=== PATIENT | male | born 1980 | race Caucasian/White ===

== ENCOUNTER 2022-01-05 21:35 | Inpatient (IN) | payer BC, OTHER ==
[2022-01-05] MEDS ORDERED: Sodium Chloride 0.9% 1000 ML 1,000 ML IV STA (21:42)
[2022-01-05] MEDS ORDERED: Sodium Chloride 0.9% 1000 ML 1,000 ML ONE (22:07)
[2022-01-05 22:13] LABS: Absolute Neutrophil Ct (ANC) 11.64 (1.4-6.9); Basophil (Absolute #) 0.02 (0-0.4); Eosinophil % 0.1 % (0.00-5.0); Eosinophil (Absolute #) 0.01 (0-0.5); Hematocrit 37.8 % (42-50); Hemoglobin 12.2 gm/dl (12.5-18.0); Lymphocytes % 22.4 % (24.0-44.0); Mean Corpuscular Hemoglobin 30.3 pg (26-32); Mean Corpuscular Hgb Concent. 32.3 g/dl (32-36); Mean Platelet Volume 10.1 fl (7.5-11.0); Monocyte (Absolute #) 1.16 (0.0-1.3); Neutrophil % 70.4 % (36.0-66.0); Platelet Count 223 K/mm3 (150-450); Red Blood Count 4.02 M/mm3 (4.1-5.6); Red Cell Distribution Width 14.5 % (11.5-14.0); White Blood Count 16.5 K/mm3 (4.0-10.5)
[2022-01-05 22:13] LABS: Appearance CLEAR (CLEAR); Bilirubin NEGATIVE (NEGATIVE); Dipstick done @ ? MAIN LAB; Glucose NEGATIVE (NEGATIVE); Ketones NEGATIVE (NEGATIVE); Nitrite NEGATIVE (NEGATIVE); Protein,Urine Dip NEGATIVE (Negative); RBC NEGATIVE Ery/ul (0-5); Specific Gravity 1.015 (1.005-1.025); Urobilinogen 1 mg/dL (0-1)
[2022-01-05 22:14] LABS: Bacteria NONE SEEN /HPF (NEGATIVE); Epithelial Cells RARE /HPF (FEW); Mucus SLIGHT /HPF (NEGATIVE); Urine Cultured Indicated? NO; WBC 0-2 /HPF (0-5)
[2022-01-05 22:17] LABS: ALBUMIN 4.5 g/dL (3.5-5.0); ALKALINE PHOSPHATASE 83 U/L (38-126); ANION GAP 13.4 MEQ/L (5-15); BLOOD UREA NITROGEN 14 mg/dL (9-20); CHLORIDE 97 mmol/L (98-107); Calcium 9.1 mg/dL (8.4-10.2); Carbon Dioxide 26 mmol/L (22-30); Creatinine 1 0.79 mg/dL (0.66-1.25); EST GLOMERULAR FILTRATION RATE > 60.0 ML/MIN; Glucose 117 mg/dL (74-106); LIPASE 104 U/L (23-300); Potassium 3.9 mmol/L (3.5-5.1); SGOT/AST 19 U/L (17-59); SGPT/ALT 16 U/L (0-50); SODIUM 133 mmol/L (137-145); Total Protein 8.1 g/dL (6.3-8.2)
--- NOTE | 2022-01-05 22:44 | ERPHSYRPT ---
- History of Present Illness Time Seen by Provider: 01/05/22 21:50 Historian: patient Exam Limitations: no limitations Patient Subjective Stated Complaint: lt sided lower abd pain Triage Nursing Assessment: pt c/o LLQ pain, non radiating. Pt has pain with palpation. Pt denies any nausea, vomiting or indigestion. Abd soft with active bsx4 quad, tender on palpation. Pt had 2 bowel movements today. Pt able to eat and drink with difficulty. Physician History: Patient is a 41-year-old male presents to our ED with complaints of left lower abdominal pain that started today. Pain described as an ache that is localized. No radiation. Pain worse with palpation. Pain improved with rest. No fever. No trauma. No nausea or vomiting. No diarrhea. No rash. Symptoms are moderate in intensity. Patient voices no other complaints concerns at this time. Timing/Duration: today Activities at Onset: none Quality: aching Abdominal Pain Onset Location: [facility] Pain Radiation: no radiation Severity of Pain-Max: moderate Severity of Pain-Current: mild Associated Symptoms: denies symptoms Previous symptoms: no prior history Allergies/Adverse Reactions: No Known Drug Allergies Allergy (Unverified 01/05/22 21:57) Home Medications: Benazepril HCl 10 mg [Lotensin 10 MG] 1 tab PO DAILY 01/05/22 [History] Folic Acid/Vit B Complex and C [Super B Complex Tablet] 1 tab PO DAILY 01/05/22 [History] Furosemide 40 mg PO DAILY 01/05/22 [History] Gabapentin 600 mg PO HS 01/05/22 [History] Hydrocodone/Acetaminophen [Hydrocodone-Acetamin 7.5-325] 1 tab PO DAILY 01/05/22 [History] Levocetirizine Dihydrochloride [Xyzal] 5 mg PO HS 01/05/22 [History] Metformin HCl 500 mg [Glucophage 500 MG] 500 mg PO DAILY 01/05/22 [History] PARoxetine HCl [Paxil] 1 tab PO HS 01/05/22 [History] Potassium Chloride 20 meq PO DAILY 01/05/22 [History] Zinc 1 tab PO DAILY 01/05/22 [History] Hx Tetanus, Diphtheria Vaccination/Date Given: Yes Hx Influenza Vaccination/Date Given: Yes Hx Pneumococcal Vaccination/Date Given: No Immunizations Up to Date: Yes Travel Risk - International Travel Have you traveled outside of the country in past 3 weeks: No - Coronavirus Screening Are you exhibiting any of the following symptoms?: No Close contact with a COVID-19 positive Pt in past 14-21 Days: No - Vaccine Status Have you recieved a Covid-19 vaccination: Yes [employer] In[employer]: Moderna - Vaccination Dates Date of 2cond Vaccination (if applicable): 10/28/20 - Review of Systems Constitutional: No Symptoms, No Fever, No Chills Eyes: No Symptoms Ears, Nose, & Throat: No Symptoms Respiratory: No Symptoms, No Cough, No Dyspnea Cardiac: No Symptoms, No Chest Pain, No Edema, No Syncope Abdominal/Gastrointestinal: No Symptoms, No Abdominal Pain, No Nausea, No V omiting, No Diarrhea Genitourinary Symptoms: No Symptoms, No Dysuria Musculoskeletal: No Symptoms, No Back Pain, No Neck Pain Skin: No Symptoms, No Rash Neurological: No Symptoms, No Dizziness, No Focal Weakness, No Sensory Changes Psychological: No Symptoms Endocrine: No Symptoms Hematologic/Lymphatic: No Symptoms Immunological/Allergic: No Symptoms All Other Systems: Reviewed and Negative - Past Medical History Pertinent Past Medical History: Yes Neurological History: No Pertinent History ENT History: No Pertinent History Cardiac History: No Pertinent History Respiratory History: No Pertinent History Endocrine Medical History: Diabetes Type II Musculoskeletal History: No Pertinent History GI Medical History: No Pertinent History History: No Pertinent History Psycho-Social History: Anxiety, Depression Male Reproductive Disorders: No Pertinent History Other Medical History: neuropathy. sciatica - Past Surgical History Past Surgical History: No - Social History Smoking Status: Former smoker Exposure to second hand smoke: No Drug Use: none Patient Lives Alone: No - Nursing Vital Signs Nursing Vital Signs: Initial Vital Signs Temperature 99.4 F 01/05/22 21:46 Pulse Rate 112 H 01/05/22 21:46 Respiratory Rate 18 01/05/22 21:46 Blood Pressure 136/92 01/05/22 21:46 O2 Sat by Pulse Oximetry 97 01/05/22 21:46 Pain Scale Pain Intensity 6 - Physical Exam General Appearance: no apparent distress, alert Eye Exam: PERRL/EOMI, eyes nml inspection Ears, Nose, Throat Exam: normal ENT inspection, pharynx normal, moist mucous membranes Neck Exam: normal inspection, non-tender, supple, full range of motion Respiratory Exam: normal breath sounds, lungs clear, No respiratory distress Cardiovascular Exam: regular rate/rhythm, normal heart sounds, normal peripheral pulses Gastrointestinal/Abdomen Exam: soft, No tenderness, No mass Back Exam: normal inspection, normal range of motion, No CVA tenderness, No vertebral tenderness Extremity Exam: normal inspection, normal range of motion, pelvis stable Neurologic Exam: alert, oriented x 3, cooperative, normal mood/affect, nml cerebellar function, sensation nml, No motor deficits Skin Exam: normal color, warm, dry Lymphatic Exam: No adenopathy SpO2 Interpretation: normal SpO2: 97 O2 Delivery: Room Air - Course Nursing assessment & vital signs reviewed: Yes - CT Exams Abdomen/Pelvis CT Interpretation: Tele-radiologist Report (1 cm subcapsular right hepatic cyst moderate wall thickening of the distal descending and proximal sigmoid colon extensive pericolonic inflammatory change. Probable focal area of subserosal or contained periserosal perforation without abscess.) Ordered Tests: Active Orders 24 hr Category Date Time Status IV Insertion STAT Care 01/05/22 21:42 Active ABDOMEN AND PELVIS W CONTRAST [CT] Stat Exams 01/05/22 21:43 Taken CBC W DIFF Stat Lab 01/05/22 22:00 Completed CMP Stat Lab 01/05/22 22:00 Completed LIPASE Stat Lab 01/05/22 22:00 Completed Transfer Order Routine Transfer 01/06/22 Ordered Medication Summary Discontinued Medications Generic Name Dose Route Start Last Admin Trade Name Freq PRN Reason Stop Dose Admin Sodium Chloride 1,000 mls @ 999 mls/hr 01/05/22 21:42 01/05/22 23:17 Sodium Chloride 0.9% 1000 Ml IV 01/05/22 22:42 Infused .Q1H1M STA Infusion Sodium Chloride Confirm 01/05/22 22:07 Sodium Chloride 0.9% 1000 Ml Administered 01/05/22 22:08 Dose 1,000 mls @ ud .ROUTE .STK-MED ONE Piperacillin Sod/Tazobactam 100 mls @ 200 mls/hr 01/05/22 23:14 01/05/22 23:20 Sod 3.375 gm/ Sodium Chloride IV 01/05/22 23:43 200 mls/hr STAT ONE Administration Sodium Chloride Confirm 01/05/22 23:19 Sodium Chloride 100ml Mini-Bag Plus Administered 01/05/22 23:20 Dose 100 mls @ ud IV .STK-MED ONE Piperacillin Sod/Tazobactam Sod Confirm 01/05/22 23:19 Piperacillin/Tazobactam Sodium 3.375 Gm Vial Administered 01/05/22 23:20 Dose 3.375 gm IV .STK-MED ONE Lab/Rad Data: Laboratory Result Diagrams 01/05/22 22:00 01/05/22 22:00 Laboratory Results 01/05/22 01/05/22 01/05/22 Range/Units 23:45 22:00 22:00 WBC 16.5 H (4.0-10.5) K/mm3 RBC 4.02 L (4.1-5.6) M/mm3 Hgb 12.2 L (12.5-18.0) gm/dl Hct 37.8 L (42-50) % MCV 94.0 (78-100) fl MCH 30.3 (26-32) pg MCHC 32.3 (32-36) g/dl RDW 14.5 H (11.5-14.0) % Plt Count 223 (150-450) K/mm3 MPV 10.1 (7.5-11.0) fl Gran % 70.4 H (36.0-66.0) % Eos # (Auto) 0.01 (0-0.5) Absolute Lymphs (auto) 3.70 (1.0-4.6) Absolute Monos (auto) 1.16 (0.0-1.3) Lymphocytes % 22.4 L (24.0-44.0) % Monocytes % 7.0 (0.0-12.0) % Eosinophils % 0.1 (0.00-5.0) % Basophils % 0.1 (0.0-0.4) % Absolute Granulocytes 11.64 H (1.4-6.9) Basophils # 0.02 (0-0.4) Sodium 133 L (137-145) mmol/L Potassium 3.9 (3.5-5.1) mmol/L Chloride 97 L (98-107) mmol/L Carbon Dioxide 26 (22-30) mmol/L Anion Gap 13.4 (5-15) MEQ/L BUN 14 (9-20) mg/dL Creatinine 0.79 (0.66-1.25) mg/dL Estimated GFR > 60.0 ML/MIN Glucose 117 H (74-106) mg/dL Calcium 9.1 (8.4-10.2) mg/dL Total Bilirubin 1.60 H (0.2-1.3) mg/dL AST 19 (17-59) U/L ALT 16 (0-50) U/L Alkaline Phosphatase 83 (38-126) U/L Serum Total Protein 8.1 (6.3-8.2) g/dL Albumin 4.5 (3.5-5.0) g/dL Lipase 104 (23-300) U/L Urinalys Dipstick Clnc Urine Color (YELLOW) Urine Appearance (CLEAR) Urine pH (5-6) Ur Specific [place] (1.005-1.025) POC Urine Protein Conf (Negative) Urine Ketones (NEGATIVE) Urine Nitrite (NEGATIVE) Urine Bilirubin (NEGATIVE) Urine Urobilinogen (0-1) mg/dL Urine Leukocytes (NEGATIVE) Urine WBC (Auto) (0-5) /HPF Urine RBC (Auto) (0-2) /HPF U Epithel Cells (Auto) (FEW) /HPF Urine Bacteria (Auto) (NEGATIVE) /HPF Urine RBC (0-5) Ross/ul Urine Mucus (Auto) (NEGATIVE) /HPF Ur Culture Indicated? Urine Glucose (NEGATIVE) mg/dL Influenza Type A Ag NEGATIVE (NEGATIVE) Influenza Type B Ag NEGATIVE (NEGATIVE) RSV (PCR) NEGATIVE (Negative) SARS-CoV-2 (PCR) NEGATIVE (NEGATIVE) 01/05/22 Range/Units 21:57 WBC (4.0-10.5) K/mm3 RBC (4.1-5.6) M/mm3 Hgb (12.5-18.0) gm/dl Hct (42-50) % MCV (78-100) fl MCH (26-32) pg MCHC (32-36) g/dl RDW (11.5-14.0) % Plt Count (150-450) K/mm3 MPV (7.5-11.0) fl Gran % (36.0-66.0) % Eos # (Auto) (0-0.5) Absolute Lymphs (auto) (1.0-4.6) Absolute Monos (auto) (0.0-1.3) Lymphocytes % (24.0-44.0) % Monocytes % (0.0-12.0) % Eosinophils % (0.00-5.0) % Basophils % (0.0-0.4) % Absolute Granulocytes (1.4-6.9) Basophils # (0-0.4) Sodium (137-145) mmol/L Potassium (3.5-5.1) mmol/L Chloride (98-107) mmol/L Carbon Dioxide (22-30) mmol/L Anion Gap (5-15) MEQ/L BUN (9-20) mg/dL Creatinine (0.66-1.25) mg/dL Estimated GFR ML/MIN Glucose (74-106) mg/dL Calcium (8.4-10.2) mg/dL Total Bilirubin (0.2-1.3) mg/dL AST (17-59) U/L ALT (0-50) U/L Alkaline Phosphatase (38-126) U/L Serum Total Protein (6.3-8.2) g/dL Albumin (3.5-5.0) g/dL Lipase (23-300) U/L Urinalys Dipstick Clnc MAIN LAB Urine Color YELLOW (YELLOW) Urine Appearance CLEAR (CLEAR) Urine pH 7.0 (5-6) Ur Specific [place] 1.015 (1.005-1.025) POC Urine Protein Conf NEGATIVE (Negative) Urine Ketones NEGATIVE (NEGATIVE) Urine Nitrite NEGATIVE (NEGATIVE) Urine Bilirubin NEGATIVE (NEGATIVE) Urine Urobilinogen 1 (0-1) mg/dL Urine Leukocytes NEGATIVE (NEGATIVE) Urine WBC (Auto) 0-2 (0-5) /HPF Urine RBC (Auto) NONE (0-2) /HPF U Epithel Cells (Auto) RARE (FEW) /HPF Urine Bacteria (Auto) NONE SEEN (NEGATIVE) /HPF Urine RBC NEGATIVE (0-5) Ross/ul Urine Mucus (Auto) SLIGHT (NEGATIVE) /HPF Ur Culture Indicated? NO Urine Glucose NEGATIVE (NEGATIVE) mg/dL Influenza Type A Ag (NEGATIVE) Influenza Type B Ag (NEGATIVE) RSV (PCR) (Negative) SARS-CoV-2 (PCR) (NEGATIVE) - Progress Progress: improved Progress Note: CT scan reveals severe proximal sigmoid colon diverticulitis with likely localized perforation without definitive evidence of pericolonic abscess. 01/05/22 23:[address] Eleazar Coronado who advises IV fluids n.p.o. and IV antibiotics. Patient received a dose of Zosyn. Case discussed with Dr. Quinones who accepts admission to observation. Covid test pending. Plan of care discussed with patient. He agrees to admission [facility] for further evaluation and treatment. 01/05/22 23:28 Covid test negative. Admit orders entered. Portions of this note were created with voice recognition technology. There may be grammatical, spelling, punctuation or sound alike errors 01/06/22 01:[address] Kyra Martinez Will see patient in: hospital (observation) Counseled pt/family regarding: lab results, diagnosis, rad results - Departure Departure Disposition: Observation Clinical Impression: Leukocytosis, Diverticulitis, Bowel perforation, Hyponatremia, Liver cyst Condition: Stable Critical Care Time: No Referrals: JORDAN MEADE [Primary Care Provider] - Follow up/PCP as directed
[2022-01-05] MEDS ORDERED: PIPERACILLIN/TAZOBACTAM 3.375 GM in Sodium Chloride 100ML MINI-BAG PLUS 100 ML IV ONE (23:14)
[2022-01-05] MEDS ORDERED: PIPERACILLIN/TAZOBACTAM IV ONE (23:19)
[2022-01-05] MEDS ORDERED: Sodium Chloride 100ML MINI-BAG PLUS 100 ML IV ONE (23:19)
[2022-01-06 00:29] LABS: INFLUENZA A NEGATIVE (NEGATIVE); INFLUENZA B NEGATIVE (NEGATIVE); RESPIRATORY SYNCTIAL VIRUS NEGATIVE (Negative); SARS-CoV-2 Xpert Express NEGATIVE (NEGATIVE)
[2022-01-06] MEDS ORDERED: Zofran 4 MG/2 ML VIAL IV PRN (01:17)
[2022-01-06] MEDS: MORPHINE SULFATE 4 MG INJ IV PRN ×4 (01:44→19:28)
[2022-01-06] MEDS: Sodium Chloride 0.9% 1000 ML 1,000 ML IV SCH ×3 (01:50→23:10)
[2022-01-06 05:05] LABS: Basophil (Absolute #) 0.02 (0-0.4); Eosinophil % 0.1 % (0.00-5.0); Eosinophil (Absolute #) 0.01 (0-0.5); Hematocrit 33.2 % (42-50); Hemoglobin 10.7 gm/dl (12.5-18.0); Lymphocyte (Absolute #) 3.73 (1.0-4.6); Lymphocytes % 23.7 % (24.0-44.0); Mean Cell Volume 95.4 fl (78-100); Mean Corpuscular Hemoglobin 30.7 pg (26-32); Mean Corpuscular Hgb Concent. 32.2 g/dl (32-36); Monocyte (Absolute #) 1.41 (0.0-1.3); Monocytes % 8.9 % (0.0-12.0); Neutrophil % 67.2 % (36.0-66.0); Platelet Count 188 K/mm3 (150-450); Red Blood Count 3.48 M/mm3 (4.1-5.6); Red Cell Distribution Width 14.8 % (11.5-14.0); White Blood Count 15.8 K/mm3 (4.0-10.5)
[2022-01-06 05:30] LABS: ALBUMIN 3.9 g/dL (3.5-5.0); ALKALINE PHOSPHATASE 65 U/L (38-126); ANION GAP 13.6 MEQ/L (5-15); BLOOD UREA NITROGEN 12 mg/dL (9-20); CHLORIDE 98 mmol/L (98-107); Calcium 8.3 mg/dL (8.4-10.2); Carbon Dioxide 25 mmol/L (22-30); Creatinine 1 0.77 mg/dL (0.66-1.25); EST GLOMERULAR FILTRATION RATE > 60.0 ML/MIN; Glucose 118 mg/dL (74-106); Potassium 3.8 mmol/L (3.5-5.1); SGOT/AST 18 U/L (17-59); SGPT/ALT 13 U/L (0-50); SODIUM 133 mmol/L (137-145); Total Protein 7.3 g/dL (6.3-8.2)
[2022-01-06] MEDS ORDERED: PIPERACILLIN/TAZOBACTAM IV ONE (06:15)
[2022-01-06] MEDS ORDERED: Sodium Chloride 100ML MINI-BAG PLUS 100 ML IV ONE (06:16)
[2022-01-06] MEDS: PIPERACILLIN/TAZOBACTAM 3.375 GM in Sodium Chloride 100ML MINI-BAG PLUS 100 ML IV SCH ×4 (06:32→23:10)
[2022-01-06] MEDS ORDERED: HOLD METFORMIN PRODUCTS FOR 48 HOURS MC SCH (07:30)
[2022-01-06] MEDS ORDERED: HUMALOG SQ PRN (07:59)
--- NOTE | 2022-01-06 07:59 | PCM.HP ---
History of Present Illness - Chief Complaint Chief Complaint: bowel perforation History of Present Illness: is a 41 year old male who is normally cared for by Dr Vee, he has had left lower abdomen pain for the last 3 months but it had improved, saw his physician and was told he didn't have a hernia and no testing was performed. Yesterday his pain became severe in the left lower abdomen, he was nauseated, no known fever and pain progressively worsened over 2-3 days so he came to the ER. Currently on the floor, his pain is well controlled and he has received morphine. - Review of Systems Constitutional: No Fever, No Chills Abdominal/Gastrointestinal: Abdominal Pain, Nausea, No Diarrhea, No Constipation Genitourinary Symptoms: No Dysuria Skin: No Rash Neurological: No Dizziness, No Focal Weakness, No Sensory Changes Medications & Allergies Home Medications: Home Medication List Benazepril HCl 10 mg [Lotensin 10 MG] 1 tab PO DAILY 01/05/22 [History Confirmed 01/05/22] Folic Acid/Vit B Complex and C [Super B Complex Tablet] 1 tab PO DAILY 01/05/22 [History Confirmed 01/05/22] Furosemide 40 mg PO DAILY 01/05/22 [History Confirmed 01/05/22] Gabapentin 600 mg PO HS 01/05/22 [History Confirmed 01/05/22] Hydrocodone/Acetaminophen [Hydrocodone-Acetamin 7.5-325] 1 tab PO DAILY 01/05/22 [History Confirmed 01/05/22] Levocetirizine Dihydrochloride [Xyzal] 5 mg PO HS 01/05/22 [History Confirmed 01/05/22] Metformin HCl 500 mg [Glucophage 500 MG] 500 mg PO DAILY 01/05/22 [History Confirmed 01/05/22] PARoxetine HCl [Paxil] 1 tab PO HS 01/05/22 [History Confirmed 01/05/22] Potassium Chloride 20 meq PO DAILY 01/05/22 [History Confirmed 01/05/22] Zinc 1 tab PO DAILY 01/05/22 [History Confirmed 01/05/22] Allergies/Adverse Reactions: Allergies Allergy/AdvReac Type Severity Reaction Status Date / Time No Known Drug Allergies Allergy Unverified 01/05/22 21:57 - Past Medical History Past Medical History: Yes Neurological History: No Pertinent History ENT History: No Pertinent History Cardiac History: No Pertinent History Respiratory History: No Pertinent History Endocrine Medical History: Diabetes Type II Musculoskelatal History: No Pertinent History GI Medical History: No Pertinent History History: No Pertinent History Pyscho-Social History: Anxiety, Depression Male Reproductive Disorders: No Pertinent History Comment: neuropathy. sciatica - Past Surgical History Past Surgical History: No - Social History Smoking Status: Former smoker Exposure to second hand smoke: No Alcohol: None Drug Use: none - Physical Exam Vital Signs: Vital Signs - 24 hr Temp Pulse Resp BP Pulse Ox 01/06/22 07:07 98.4 F 81 16 117/57 96 01/06/22 06:50 96 01/06/22 04:00 99.8 F 87 14 106/61 92 L 01/06/22 03:43 94 L 01/06/22 03:40 88 L 01/06/22 03:35 89 L 01/06/22 02:07 94 L 01/06/22 01:56 98.7 F 94 H 18 125/70 96 01/06/22 01:17 94 L 01/06/22 01:07 97 01/06/22 01:00 87 20 112/60 95 01/06/22 00:00 89 20 126/71 95 01/05/22 23:00 84 20 126/71 97 01/05/22 22:36 92 H 20 130/78 97 01/05/22 21:46 99.4 F 112 H 18 136/92 97 General Appearance: no apparent distress, obese Neurologic Exam: alert, oriented x 3 Respiratory Exam: normal breath sounds, lungs clear, No respiratory distress Cardiovascular Exam: regular rate/rhythm, normal heart sounds, normal peripheral pulses Gastrointestinal/Abdomen Exam: normal bowel sounds, tenderness (LLQ), No rebound Extremity Exam: normal inspection, normal range of motion, pelvis stable Skin Exam: normal color, warm, dry, No rash Results - Labs Lab/Micro Results: Lab Results-Last 24 Hours 01/05/22 01/05/22 01/05/22 Range/Units 21:57 22:00 22:00 WBC 16.5 H (4.0-10.5) K/mm3 RBC 4.02 L (4.1-5.6) M/mm3 Hgb 12.2 L (12.5-18.0) gm/dl Hct 37.8 L (42-50) % MCV 94.0 (78-100) fl MCH 30.3 (26-32) pg MCHC 32.3 (32-36) g/dl RDW 14.5 H (11.5-14.0) % Plt Count 223 (150-450) K/mm3 MPV 10.1 (7.5-11.0) fl Gran % 70.4 H (36.0-66.0) % Eos # (Auto) 0.01 (0-0.5) Absolute Lymphs (auto) 3.70 (1.0-4.6) Absolute Monos (auto) 1.16 (0.0-1.3) Lymphocytes % 22.4 L (24.0-44.0) % Monocytes % 7.0 (0.0-12.0) % Eosinophils % 0.1 (0.00-5.0) % Basophils % 0.1 (0.0-0.4) % Absolute Granulocytes 11.64 H (1.4-6.9) Basophils # 0.02 (0-0.4) Sodium 133 L (137-145) mmol/L Potassium 3.9 (3.5-5.1) mmol/L Chloride 97 L (98-107) mmol/L Carbon Dioxide 26 (22-30) mmol/L Anion Gap 13.4 (5-15) MEQ/L BUN 14 (9-20) mg/dL Creatinine 0.79 (0.66-1.25) mg/dL Estimated GFR > 60.0 ML/MIN Glucose 117 H (74-106) mg/dL Calcium 9.1 (8.4-10.2) mg/dL Total Bilirubin 1.60 H (0.2-1.3) mg/dL AST 19 (17-59) U/L ALT 16 (0-50) U/L Alkaline Phosphatase 83 (38-126) U/L Serum Total Protein 8.1 (6.3-8.2) g/dL Albumin 4.5 (3.5-5.0) g/dL Lipase 104 (23-300) U/L Urinalys Dipstick Clnc MAIN LAB Urine Color YELLOW (YELLOW) Urine Appearance CLEAR (CLEAR) Urine pH 7.0 (5-6) Ur Specific Whitt 1.015 (1.005-1.025) POC Urine Protein Conf NEGATIVE (Negative) Urine Ketones NEGATIVE (NEGATIVE) Urine Nitrite NEGATIVE (NEGATIVE) Urine Bilirubin NEGATIVE (NEGATIVE) Urine Urobilinogen 1 (0-1) mg/dL Urine Leukocytes NEGATIVE (NEGATIVE) Urine WBC (Auto) 0-2 (0-5) /HPF Urine RBC (Auto) NONE (0-2) /HPF U Epithel Cells (Auto) RARE (FEW) /HPF Urine Bacteria (Auto) NONE SEEN (NEGATIVE) /HPF Urine RBC NEGATIVE (0-5) Ross/ul Urine Mucus (Auto) SLIGHT (NEGATIVE) /HPF Ur Culture Indicated? NO Urine Glucose NEGATIVE (NEGATIVE) mg/dL Influenza Type A Ag (NEGATIVE) Influenza Type B Ag (NEGATIVE) RSV (PCR) (Negative) SARS-CoV-2 (PCR) (NEGATIVE) 01/05/22 01/06/22 01/06/22 Range/Units 23:45 04:30 04:30 WBC 15.8 H (4.0-10.5) K/mm3 RBC 3.48 L (4.1-5.6) M/mm3 Hgb 10.7 L (12.5-18.0) gm/dl Hct 33.2 L (42-50) % MCV 95.4 (78-100) fl MCH 30.7 (26-32) pg MCHC 32.2 (32-36) g/dl RDW 14.8 H (11.5-14.0) % Plt Count 188 (150-450) K/mm3 MPV 10.0 (7.5-11.0) fl Gran % 67.2 H (36.0-66.0) % Eos # (Auto) 0.01 (0-0.5) Absolute Lymphs (auto) 3.73 (1.0-4.6) Absolute Monos (auto) 1.41 H (0.0-1.3) Lymphocytes % 23.7 L (24.0-44.0) % Monocytes % 8.9 (0.0-12.0) % Eosinophils % 0.1 (0.00-5.0) % Basophils % 0.1 (0.0-0.4) % Absolute Granulocytes 10.60 H (1.4-6.9) Basophils # 0.02 (0-0.4) Sodium 133 L (137-145) mmol/L Potassium 3.8 (3.5-5.1) mmol/L Chloride 98 (98-107) mmol/L Carbon Dioxide 25 (22-30) mmol/L Anion Gap 13.6 (5-15) MEQ/L BUN 12 (9-20) mg/dL Creatinine 0.77 (0.66-1.25) mg/dL Estimated GFR > 60.0 ML/MIN Glucose 118 H (74-106) mg/dL Calcium 8.3 L (8.4-10.2) mg/dL Total Bilirubin 1.80 H (0.2-1.3) mg/dL AST 18 (17-59) U/L ALT 13 (0-50) U/L Alkaline Phosphatase 65 (38-126) U/L Serum Total Protein 7.3 (6.3-8.2) g/dL Albumin 3.9 (3.5-5.0) g/dL Lipase (23-300) U/L Urinalys Dipstick Clnc Urine Color (YELLOW) Urine Appearance (CLEAR) Urine pH (5-6) Ur Specific [place] (1.005-1.025) POC Urine Protein Conf (Negative) Urine Ketones (NEGATIVE) Urine Nitrite (NEGATIVE) Urine Bilirubin (NEGATIVE) Urine Urobilinogen (0-1) mg/dL Urine Leukocytes (NEGATIVE) Urine WBC (Auto) (0-5) /HPF Urine RBC (Auto) (0-2) /HPF U Epithel Cells (Auto) (FEW) /HPF Urine Bacteria (Auto) (NEGATIVE) /HPF Urine RBC (0-5) Ross/ul Urine Mucus (Auto) (NEGATIVE) /HPF Ur Culture Indicated? Urine Glucose (NEGATIVE) mg/dL Influenza Type A Ag NEGATIVE (NEGATIVE) Influenza Type B Ag NEGATIVE (NEGATIVE) RSV (PCR) NEGATIVE (Negative) SARS-CoV-2 (PCR) NEGATIVE (NEGATIVE) - Radiology Impressions Radiology Exams & Impressions: Radiology Procedures Category Date Time Status ABDOMEN AND PELVIS W CONTRAST [CT] Stat Exams 01/05/22 21:43 Taken - Other Procedures and Tests Respiratory Therapy 01/06/22 03:51 Oxygen Nasal Cannula 2 lpm 01/06/22 06:58 Incentive Spirometry UD Assessment/Plan (1) Diverticulitis of colon with perforation Current Visit: Yes Status: Acute Assessment & Plan: currently NPO, on zosyn. has microperf with no abscess on ct and exam is fairly benign. awaiting surgical consult. Code(s): K57.20 - DVTRCLI OF LG INT W PERFORATION AND ABSCESS W/O BLEEDING (2) Diabetes mellitus Current Visit: Yes Status: Acute Assessment & Plan: will cover with sliding scale insulin as needed Code(s): E11.9 - TYPE 2 DIABETES MELLITUS WITHOUT COMPLICATIONS (3) Hypertension Current Visit: Yes Status: Acute Assessment & Plan: continue home meds Code(s): I10 - ESSENTIAL (PRIMARY) HYPERTENSION
--- NOTE | 2022-01-06 09:17 | XRAY ---
Indication: Left abdomen/pelvic pain. Elevated WBC. Hernia. Multiple contiguous axial images obtained through the abdomen and pelvis using 80 cc Isovue 370 contrast. Comparison: None Lung bases demonstrates mild dependent atelectasis. Heart not enlarged. Noncontrasted stomach and bowel loops appear nonobstructed with normal air-filled appendix. Distal descending and mid to proximal sigmoid colon demonstrates moderate circumferential wall thickening and stranding favoring inflammatory process such as colitis. Tiny free fluid along the left colic gutter but no walled off fluid collection. There is intraluminal narrowing concerning for underlying mass. Junction of descending and sigmoid colon demonstrates a few diverticuli and a 1.5 cm focus of air bubbles concerning for perforation. Fatty hepatomegaly measuring 26.2 cm with incidental 1 cm inferior right lobe cyst. Splenomegaly measuring 15.5 cm. Neck of gallbladder demonstrates punctate stone. Remaining liver, gallbladder, pancreas, spleen, adrenal glands, kidneys, ureters, bladder, and aorta are unremarkable. No pathologic retroperitoneal lymphadenopathy. Osseous structures intact with mild/moderate degenerative changes throughout the thoracolumbar spine. Impression: 1. Abnormal bowel wall thickening/stranding distal descending/proximal sigmoid colon suggesting underlying inflammatory process such as colitis. Underlying mass not completely excluded. Tiny free fluid but no walled off fluid collection/abscess. Small free air at junction of descending and sigmoid colon concerning for perforation. 2. Incidental fatty hepatomegaly, splenomegaly, small hepatic cyst, and tiny gallstone. Comment: Preliminary interpretation made by [facility] who does not report free air or possibility for underlying colonic mass. Incidental findings including fatty hepatomegaly, splenomegaly, and gallstone also not reported. Telephone report given to Dr. Griffith at 0910 hrs. on January 06, 2022.
[2022-01-06] MEDS: Lotensin 10 MG PO SCH (09:23)
[2022-01-07] MEDS: MORPHINE SULFATE 4 MG INJ IV PRN ×2 (02:05→07:48)
[2022-01-07 04:39] LABS: Absolute Neutrophil Ct (ANC) 11.63 (1.4-6.9); Basophil (Absolute #) 0.02 (0-0.4); Eosinophil % 0.1 % (0.00-5.0); Eosinophil (Absolute #) 0.01 (0-0.5); Hematocrit 33.4 % (42-50); Hemoglobin 10.5 gm/dl (12.5-18.0); Lymphocyte (Absolute #) 2.64 (1.0-4.6); Lymphocytes % 17.1 % (24.0-44.0); Mean Cell Volume 96.8 fl (78-100); Mean Corpuscular Hemoglobin 30.4 pg (26-32); Mean Corpuscular Hgb Concent. 31.4 g/dl (32-36); Mean Platelet Volume 9.9 fl (7.5-11.0); Monocyte (Absolute #) 1.16 (0.0-1.3); Monocytes % 7.5 % (0.0-12.0); Neutrophil % 75.2 % (36.0-66.0); Platelet Count 184 K/mm3 (150-450); Red Blood Count 3.45 M/mm3 (4.1-5.6); Red Cell Distribution Width 14.9 % (11.5-14.0); White Blood Count 15.5 K/mm3 (4.0-10.5)
[2022-01-07 05:19] LABS: ALBUMIN 3.8 g/dL (3.5-5.0); ALKALINE PHOSPHATASE 61 U/L (38-126); ANION GAP 11.3 MEQ/L (5-15); BLOOD UREA NITROGEN 11 mg/dL (9-20); CHLORIDE 102 mmol/L (98-107); Calcium 8.3 mg/dL (8.4-10.2); Carbon Dioxide 25 mmol/L (22-30); Creatinine 1 0.71 mg/dL (0.66-1.25); EST GLOMERULAR FILTRATION RATE > 60.0 ML/MIN; Glucose 106 mg/dL (74-106); MAGNESIUM 2.1 mg/dL (1.6-2.3); SGOT/AST 15 U/L (17-59); SGPT/ALT 12 U/L (0-50); SODIUM 134 mmol/L (137-145); Total Protein 7.2 g/dL (6.3-8.2)
[2022-01-07] MEDS: PIPERACILLIN/TAZOBACTAM 3.375 GM in Sodium Chloride 100ML MINI-BAG PLUS 100 ML IV SCH ×4 (05:43→23:23)
--- NOTE | 2022-01-07 08:13 | PCM.NOTE ---
Date and Time: 01/07/22810 Subjective Assessment: pain is well controlled but still has some significant LLQ abd pain, no new complaints other than he is not urinating much which is usual for him if he doesn't have his lasix Objective Exam General Appearance: no apparent distress, obese Respiratory Exam: normal breath sounds, lungs clear, No respiratory distress Cardiovascular Exam: regular rate/rhythm, normal heart sounds Gastrointestinal/Abdomen Exam: tenderness (LLQ), No guarding, No rebound Extremity Exam: normal inspection, normal range of motion Back Exam: normal inspection, normal range of motion, No CVA tenderness, No vertebral tenderness OBJECTIVE DATA Vital Signs: Vital Signs - 24 hr Temp Pulse Resp BP Pulse Ox 01/07/22 08:00 97.8 F 99 H 18 119/61 96 01/07/22 07:51 18 01/07/22 04:00 99.1 F 91 H 18 118/61 98 01/07/22 00:00 98.8 F 79 16 117/56 97 01/06/22 20:00 98.7 F 101 H 18 103/56 95 01/06/22 18:34 96 01/06/22 16:00 16 01/06/22 15:38 97.7 F 77 16 98/56 01/06/22 12:00 16 01/06/22 11:40 97.7 F 77 16 108/55 92 L Pain Assessment - Last Documented Pain Intensity 7 Pain Scale Used 0-10 Pain Scale Intake and Output: Intake & Output 01/04/22 01/05/22 01/06/22 01/07/22 11:59 11:59 11:59 11:59 Intake Total 0 3684 Output Total 200 400 Balance -200 3284 Weight 119.9 kg Lab Results: Lab Results-Last 24 Hours 01/06/22 01/06/22 01/06/22 Range/Units 05:00 11:36 17:30 WBC (4.0-10.5) K/mm3 RBC (4.1-5.6) M/mm3 Hgb (12.5-18.0) gm/dl Hct (42-50) % MCV (78-100) fl MCH (26-32) pg MCHC (32-36) g/dl RDW (11.5-14.0) % Plt Count (150-450) K/mm3 MPV (7.5-11.0) fl Gran % (36.0-66.0) % Eos # (Auto) (0-0.5) Absolute Lymphs (auto) (1.0-4.6) Absolute Monos (auto) (0.0-1.3) Lymphocytes % (24.0-44.0) % Monocytes % (0.0-12.0) % Eosinophils % (0.00-5.0) % Basophils % (0.0-0.4) % Absolute Granulocytes (1.4-6.9) Basophils # (0-0.4) Sodium (137-145) mmol/L Potassium (3.5-5.1) mmol/L Chloride (98-107) mmol/L Carbon Dioxide (22-30) mmol/L Anion Gap (5-15) MEQ/L BUN (9-20) mg/dL Creatinine (0.66-1.25) mg/dL Estimated GFR ML/MIN Glucose (74-106) mg/dL POC Glucometer 123 H 101 (74 to 106) mg/dL Hemoglobin A1c 5.53 (4.5-6.0) % Calcium (8.4-10.2) mg/dL Magnesium (1.6-2.3) mg/dL Total Bilirubin (0.2-1.3) mg/dL AST (17-59) U/L ALT (0-50) U/L Alkaline Phosphatase (38-126) U/L Serum Total Protein (6.3-8.2) g/dL Albumin (3.5-5.0) g/dL 01/06/22 01/07/22 01/07/22 Range/Units 23:46 04:35 04:35 WBC 15.5 H (4.0-10.5) K/mm3 RBC 3.45 L (4.1-5.6) M/mm3 Hgb 10.5 L (12.5-18.0) gm/dl Hct 33.4 L (42-50) % MCV 96.8 (78-100) fl MCH 30.4 (26-32) pg MCHC 31.4 L (32-36) g/dl RDW 14.9 H (11.5-14.0) % Plt Count 184 (150-450) K/mm3 MPV 9.9 (7.5-11.0) fl Gran % 75.2 H (36.0-66.0) % Eos # (Auto) 0.01 (0-0.5) Absolute Lymphs (auto) 2.64 (1.0-4.6) Absolute Monos (auto) 1.16 (0.0-1.3) Lymphocytes % 17.1 L (24.0-44.0) % Monocytes % 7.5 (0.0-12.0) % Eosinophils % 0.1 (0.00-5.0) % Basophils % 0.1 (0.0-0.4) % Absolute Granulocytes 11.63 H (1.4-6.9) Basophils # 0.02 (0-0.4) Sodium 134 L (137-145) mmol/L Potassium 4.0 (3.5-5.1) mmol/L Chloride 102 (98-107) mmol/L Carbon Dioxide 25 (22-30) mmol/L Anion Gap 11.3 (5-15) MEQ/L BUN 11 (9-20) mg/dL Creatinine 0.71 (0.66-1.25) mg/dL Estimated GFR > 60.0 ML/MIN Glucose 106 (74-106) mg/dL POC Glucometer 94 (74 to 106) mg/dL Hemoglobin A1c (4.5-6.0) % Calcium 8.3 L (8.4-10.2) mg/dL Magnesium 2.1 (1.6-2.3) mg/dL Total Bilirubin 2.00 H (0.2-1.3) mg/dL AST 15 L (17-59) U/L ALT 12 (0-50) U/L Alkaline Phosphatase 61 (38-126) U/L Serum Total Protein 7.2 (6.3-8.2) g/dL Albumin 3.8 (3.5-5.0) g/dL 01/07/22 Range/Units 06:58 WBC (4.0-10.5) K/mm3 RBC (4.1-5.6) M/mm3 Hgb (12.5-18.0) gm/dl Hct (42-50) % MCV (78-100) fl MCH (26-32) pg MCHC (32-36) g/dl RDW (11.5-14.0) % Plt Count (150-450) K/mm3 MPV (7.5-11.0) fl Gran % (36.0-66.0) % Eos # (Auto) (0-0.5) Absolute Lymphs (auto) (1.0-4.6) Absolute Monos (auto) (0.0-1.3) Lymphocytes % (24.0-44.0) % Monocytes % (0.0-12.0) % Eosinophils % (0.00-5.0) % Basophils % (0.0-0.4) % Absolute Granulocytes (1.4-6.9) Basophils # (0-0.4) Sodium (137-145) mmol/L Potassium (3.5-5.1) mmol/L Chloride (98-107) mmol/L Carbon Dioxide (22-30) mmol/L Anion Gap (5-15) MEQ/L BUN (9-20) mg/dL Creatinine (0.66-1.25) mg/dL Estimated GFR ML/MIN Glucose (74-106) mg/dL POC Glucometer 126 H (74 to 106) mg/dL Hemoglobin A1c (4.5-6.0) % Calcium (8.4-10.2) mg/dL Magnesium (1.6-2.3) mg/dL Total Bilirubin (0.2-1.3) mg/dL AST (17-59) U/L ALT (0-50) U/L Alkaline Phosphatase (38-126) U/L Serum Total Protein (6.3-8.2) g/dL Albumin (3.5-5.0) g/dL Radiology Exams: Radiology Procedures Category Date Time Status ABDOMEN AND PELVIS W CONTRAST [CT] Stat Exams 01/05/22 21:43 Completed Assessment/Plan (1) Diverticulitis of colon with perforation Current Visit: Yes Status: Acute Assessment & Plan: continue zosyn, keep NPO. per surgery will repeat ct scan and follow. Code(s): K57.20 - DVTRCLI OF LG INT W PERFORATION AND ABSCESS W/O BLEEDING (2) Diabetes mellitus Current Visit: Yes Status: Acute Code(s): E11.9 - TYPE 2 DIABETES MELLITUS WITHOUT COMPLICATIONS (3) Hypertension Current Visit: Yes Status: Acute Assessment & Plan: stable, will add some IV lasix Code(s): I10 - ESSENTIAL (PRIMARY) HYPERTENSION
[2022-01-07] MEDS: Lasix 20 MG/2 ML IV SCH (09:01)
[2022-01-07] MEDS: Sodium Chloride 0.9% W/ 20 mEq KCl/LITER 1,000 ML IV SCH ×2 (09:06→19:42)
[2022-01-07] MEDS: Lotensin 10 MG PO SCH (09:07)
--- NOTE | 2022-01-07 09:09 | CONS ---
CONSULT DATE: 01/06/2022 HISTORY: The patient came in through the night. I was called. He has perforated diverticulitis. He was seen and examined at the bedside. He is stable. He has voided satisfactorily. He has a Babcock. He initially had suprapubic pain but now it is more left lower quadrant pain. It is probably a 7 or 8 out of 10. He did not have major free air. He did not have major puddle of fluid yet on his initial CT. White count 16,000. He has been NPO. He has been on IV fluids. He has been on pain medication. He has a large family with six members in the room. IMPRESSION: The patient is having a very significant attack of diverticulitis with focal perforation. He has no abscess to date. He is early in the course of medical conservative course of treatment. We will follow along. We will repeat CT scan at some point. We will eventually do a colonoscopy in probably six or eight weeks if he makes through the initial nonoperative period.
[2022-01-08] MEDS: MORPHINE SULFATE 4 MG INJ IV PRN (01:33)
[2022-01-08] MEDS: PIPERACILLIN/TAZOBACTAM 3.375 GM in Sodium Chloride 100ML MINI-BAG PLUS 100 ML IV SCH ×4 (05:34→23:52)
[2022-01-08 05:53] LABS: Absolute Neutrophil Ct (ANC) 7.75 (1.4-6.9); Basophil (Absolute #) 0.01 (0-0.4); Eosinophil % 0.3 % (0.00-5.0); Eosinophil (Absolute #) 0.03 (0-0.5); Hematocrit 32.9 % (42-50); Hemoglobin 10.3 gm/dl (12.5-18.0); Lymphocyte (Absolute #) 2.68 (1.0-4.6); Lymphocytes % 23.6 % (24.0-44.0); Mean Cell Volume 96.5 fl (78-100); Mean Corpuscular Hemoglobin 30.2 pg (26-32); Mean Corpuscular Hgb Concent. 31.3 g/dl (32-36); Mean Platelet Volume 9.9 fl (7.5-11.0); Monocyte (Absolute #) 0.87 (0.0-1.3); Monocytes % 7.7 % (0.0-12.0); Neutrophil % 68.3 % (36.0-66.0); Platelet Count 173 K/mm3 (150-450); Red Blood Count 3.41 M/mm3 (4.1-5.6); Red Cell Distribution Width 14.6 % (11.5-14.0); White Blood Count 11.3 K/mm3 (4.0-10.5)
[2022-01-08 06:13] LABS: ANION GAP 12.9 MEQ/L (5-15); BLOOD UREA NITROGEN 9 mg/dL (9-20); CHLORIDE 101 mmol/L (98-107); Calcium 8.2 mg/dL (8.4-10.2); Carbon Dioxide 26 mmol/L (22-30); Creatinine 1 0.68 mg/dL (0.66-1.25); EST GLOMERULAR FILTRATION RATE > 60.0 ML/MIN; Glucose 107 mg/dL (74-106); MAGNESIUM 2.2 mg/dL (1.6-2.3); Potassium 4.1 mmol/L (3.5-5.1); SODIUM 136 mmol/L (137-145)
[2022-01-08] MEDS: Sodium Chloride 0.9% W/ 20 mEq KCl/LITER 1,000 ML IV SCH ×2 (06:25→17:19)
[2022-01-08] MEDS: Lotensin 10 MG PO SCH (10:09)
[2022-01-08] MEDS: Lasix 20 MG/2 ML IV SCH (10:09)
[2022-01-08] MEDS: NORCO 7.5/325 MG TAB PO PRN (13:35)
[2022-01-08] MEDS: VITA-BEE WITH C PO SCH (13:36)
[2022-01-08] MEDS: Zinc Gluconate 50 MG PO SCH (13:36)
[2022-01-08] MEDS: Klor Con 10 MEQ PO SCH (13:36)
[2022-01-08] MEDS: xanAX 0.5 MG PO PRN (21:05)
[2022-01-08] MEDS: CLARITIN 10 MG PO SCH (21:06)
[2022-01-08] MEDS: NEURONTIN 300 MG PO SCH (21:06)
[2022-01-08] MEDS: Paxil 20 MG PO SCH (21:06)
[2022-01-08] MEDS ORDERED: NON-FORMULARY ITEM (Paroxetine Hcl [Paxil] 10 MG Tablet) PO SCH (22:00)
[2022-01-08] MEDS ORDERED: NON-FORMULARY ITEM (Gabapentin [Gabapentin] 600 MG Tablet) PO SCH (22:00)
[2022-01-08] MEDS ORDERED: NON-FORMULARY ITEM (Levocetirizine Dihydrochloride [Xyzal] 5 MG Tablet) PO SCH (22:00)
[2022-01-09] MEDS: Sodium Chloride 0.9% W/ 20 mEq KCl/LITER 1,000 ML IV SCH ×2 (05:05→15:58)
[2022-01-09] MEDS: PIPERACILLIN/TAZOBACTAM 3.375 GM in Sodium Chloride 100ML MINI-BAG PLUS 100 ML IV SCH ×3 (05:50→18:04)
[2022-01-09 05:51] LABS: Hematocrit 32.2 % (42-50); Hemoglobin 10.2 gm/dl (12.5-18.0); Mean Cell Volume 96.4 fl (78-100); Mean Corpuscular Hemoglobin 30.5 pg (26-32); Mean Corpuscular Hgb Concent. 31.7 g/dl (32-36); Mean Platelet Volume 9.9 fl (7.5-11.0); Platelet Count 191 K/mm3 (150-450); Red Blood Count 3.34 M/mm3 (4.1-5.6); Red Cell Distribution Width 14.2 % (11.5-14.0); White Blood Count 8.9 K/mm3 (4.0-10.5)
[2022-01-09 06:25] LABS: ALBUMIN 3.7 g/dL (3.5-5.0); ALKALINE PHOSPHATASE 63 U/L (38-126); ANION GAP 11.9 MEQ/L (5-15); BLOOD UREA NITROGEN 7 mg/dL (9-20); CHLORIDE 103 mmol/L (98-107); Calcium 8.8 mg/dL (8.4-10.2); Carbon Dioxide 27 mmol/L (22-30); Cholesterol 147 mg/dL (50-200); Creatinine 1 0.78 mg/dL (0.66-1.25); EST GLOMERULAR FILTRATION RATE > 60.0 ML/MIN; Glucose 106 mg/dL (74-106); HDL CHOLESTEROL 21 mg/dL (40-60); LDL, DIRECT 94 mg/dL (30-100); Potassium 4.1 mmol/L (3.5-5.1); Risk Ratio 7.1; SGOT/AST 19 U/L (17-59); SGPT/ALT 15 U/L (0-50); SODIUM 138 mmol/L (137-145); TRIGLYCERIDE 104 mg/dL (30-150); Total Protein 7.2 g/dL (6.3-8.2)
[2022-01-09] MEDS ORDERED: NON-FORMULARY ITEM (Potassium Chloride [Potassium Chloride] 20 MEQ Tab.Er.Prt) PO SCH (10:00)
[2022-01-09] MEDS ORDERED: NON-FORMULARY ITEM (Zinc [Zinc] 50 MG Tablet) PO SCH (10:00)
[2022-01-09] MEDS: Klor Con 10 MEQ PO SCH (10:26)
[2022-01-09] MEDS: NORCO 7.5/325 MG TAB PO PRN (10:26)
[2022-01-09] MEDS: Lasix 40 MG PO SCH (10:27)
[2022-01-09] MEDS: Zinc Gluconate 50 MG PO SCH (10:27)
[2022-01-09] MEDS: VITA-BEE WITH C PO SCH (10:27)
[2022-01-09] MEDS: Lotensin 10 MG PO SCH (10:39)
[2022-01-09] MEDS: Paxil 20 MG PO SCH (21:52)
[2022-01-09] MEDS: CLARITIN 10 MG PO SCH (21:52)
[2022-01-09] MEDS: NEURONTIN 300 MG PO SCH (21:53)
[2022-01-09] MEDS: xanAX 0.5 MG PO PRN (21:53)
[2022-01-10] MEDS: PIPERACILLIN/TAZOBACTAM 3.375 GM in Sodium Chloride 100ML MINI-BAG PLUS 100 ML IV SCH ×5 (00:38→23:16)
[2022-01-10] MEDS: Sodium Chloride 0.9% W/ 20 mEq KCl/LITER 1,000 ML IV SCH ×3 (04:09→19:52)
[2022-01-10 05:09] LABS: Hematocrit 32.9 % (42-50); Hemoglobin 10.4 gm/dl (12.5-18.0); Mean Cell Volume 95.9 fl (78-100); Mean Corpuscular Hemoglobin 30.3 pg (26-32); Mean Corpuscular Hgb Concent. 31.6 g/dl (32-36); Mean Platelet Volume 9.6 fl (7.5-11.0); Platelet Count 234 K/mm3 (150-450); Red Blood Count 3.43 M/mm3 (4.1-5.6)
[2022-01-10 05:10] LABS: ALBUMIN 3.9 g/dL (3.5-5.0); ALKALINE PHOSPHATASE 66 U/L (38-126); ANION GAP 12.1 MEQ/L (5-15); BLOOD UREA NITROGEN 4 mg/dL (9-20); CHLORIDE 101 mmol/L (98-107); Calcium 8.9 mg/dL (8.4-10.2); Carbon Dioxide 28 mmol/L (22-30); Creatinine 1 0.77 mg/dL (0.66-1.25); EST GLOMERULAR FILTRATION RATE > 60.0 ML/MIN; Glucose 105 mg/dL (74-106); Potassium 3.8 mmol/L (3.5-5.1); SGOT/AST 18 U/L (17-59); SGPT/ALT 17 U/L (0-50); SODIUM 137 mmol/L (137-145); Total Protein 7.6 g/dL (6.3-8.2)
--- NOTE | 2022-01-10 08:04 | PCM.NOTE ---
Date and Time: 01/10/22801 Subjective Assessment: patient tolerating liquid diet, currently NPO for repeat ct scan today but pain is much improved, he has no pain currently. up in a chair and overall much better. Objective Exam General Appearance: no apparent distress, obese Neurologic Exam: alert, oriented x 3 Skin Exam: normal color, warm, dry Cardiovascular Exam: regular rate/rhythm, normal heart sounds Gastrointestinal/Abdomen Exam: soft, normal bowel sounds, No tenderness, No distention, No mass, No rebound Extremity Exam: normal inspection, normal range of motion OBJECTIVE DATA Vital Signs: Vital Signs - 24 hr Temp Pulse Resp BP Pulse Ox 01/10/22 04:00 98.9 F 80 18 116/63 93 L 01/10/22 00:00 16 01/09/22 23:30 97.5 F 80 16 123/73 92 L 01/09/22 20:00 14 01/09/22 19:52 94 L 01/09/22 19:27 97.7 F 81 14 117/56 92 L 01/09/22 16:00 97.8 F 74 18 121/73 96 01/09/22 11:50 98.4 F 83 20 122/68 95 Pain Assessment - Last Documented Pain Intensity 0 Pain Scale Used 0-10 Pain Scale Intake and Output: Intake & Output 01/07/22 01/08/22 01/09/22 01/10/22 11:59 11:59 11:59 11:59 Intake Total 3684 3648 5022 3677 Output Total 400 1750 1500 5300 Balance 3284 1898 3522 -1623 Weight 120.2 kg 119.1 kg 118 kg Lab Results: Lab Results-Last 24 Hours 01/09/22 01/09/22 01/09/22 Range/Units 05:28 11:27 16:37 WBC (4.0-10.5) K/mm3 RBC (4.1-5.6) M/mm3 Hgb (12.5-18.0) gm/dl Hct (42-50) % MCV (78-100) fl MCH (26-32) pg MCHC (32-36) g/dl RDW (11.5-14.0) % Plt Count (150-450) K/mm3 MPV (7.5-11.0) fl Sodium (137-145) mmol/L Potassium (3.5-5.1) mmol/L Chloride (98-107) mmol/L Carbon Dioxide (22-30) mmol/L Anion Gap (5-15) MEQ/L BUN (9-20) mg/dL Creatinine (0.66-1.25) mg/dL Estimated GFR ML/MIN Glucose (74-106) mg/dL POC Glucometer 156 H 74 (74 to 106) mg/dL Hemoglobin A1c 5.60 (4.5-6.0) % Calcium (8.4-10.2) mg/dL Total Bilirubin (0.2-1.3) mg/dL AST (17-59) U/L ALT (0-50) U/L Alkaline Phosphatase (38-126) U/L Serum Total Protein (6.3-8.2) g/dL Albumin (3.5-5.0) g/dL 01/09/22 01/10/22 01/10/22 Range/Units 21:36 04:27 04:27 WBC 8.0 (4.0-10.5) K/mm3 RBC 3.43 L (4.1-5.6) M/mm3 Hgb 10.4 L (12.5-18.0) gm/dl Hct 32.9 L (42-50) % MCV 95.9 (78-100) fl MCH 30.3 (26-32) pg MCHC 31.6 L (32-36) g/dl RDW 14.0 (11.5-14.0) % Plt Count 234 (150-450) K/mm3 MPV 9.6 (7.5-11.0) fl Sodium 137 (137-145) mmol/L Potassium 3.8 (3.5-5.1) mmol/L Chloride 101 (98-107) mmol/L Carbon Dioxide 28 (22-30) mmol/L Anion Gap 12.1 (5-15) MEQ/L BUN 4 L (9-20) mg/dL Creatinine 0.77 (0.66-1.25) mg/dL Estimated GFR > 60.0 ML/MIN Glucose 105 (74-106) mg/dL POC Glucometer 114 H (74 to 106) mg/dL Hemoglobin A1c (4.5-6.0) % Calcium 8.9 (8.4-10.2) mg/dL Total Bilirubin 1.20 (0.2-1.3) mg/dL AST 18 (17-59) U/L ALT 17 (0-50) U/L Alkaline Phosphatase 66 (38-126) U/L Serum Total Protein 7.6 (6.3-8.2) g/dL Albumin 3.9 (3.5-5.0) g/dL 01/10/22 Range/Units 07:39 WBC (4.0-10.5) K/mm3 RBC (4.1-5.6) M/mm3 Hgb (12.5-18.0) gm/dl Hct (42-50) % MCV (78-100) fl MCH (26-32) pg MCHC (32-36) g/dl RDW (11.5-14.0) % Plt Count (150-450) K/mm3 MPV (7.5-11.0) fl Sodium (137-145) mmol/L Potassium (3.5-5.1) mmol/L Chloride (98-107) mmol/L Carbon Dioxide (22-30) mmol/L Anion Gap (5-15) MEQ/L BUN (9-20) mg/dL Creatinine (0.66-1.25) mg/dL Estimated GFR ML/MIN Glucose (74-106) mg/dL POC Glucometer 100 (74 to 106) mg/dL Hemoglobin A1c (4.5-6.0) % Calcium (8.4-10.2) mg/dL Total Bilirubin (0.2-1.3) mg/dL AST (17-59) U/L ALT (0-50) U/L Alkaline Phosphatase (38-126) U/L Serum Total Protein (6.3-8.2) g/dL Albumin (3.5-5.0) g/dL Radiology Exams: Radiology Procedures Category Date Time Status ABDOMEN AND PELVIS W CONTRAST [CT] Urgent Exams 01/10/22 08:00 Ordered Multi-Disciplinary Progress Notes: Multi-Disciplinary Progress Notes 01/09/22 20:46 Nutrition Note by Deneen Mosley F/u Note: Diet resumed to full liquids. EDOUARD Jose Initialized on 01/09/22 20:46 - END OF NOTE Assessment/Plan (1) Diverticulitis of colon with perforation Current Visit: Yes Status: Acute Assessment & Plan: day 5 of zosyn today, await repeat ct scan results and appreciate surgery recommendations. seems to be much improved clinically Code(s): K57.20 - DVTRCLI OF LG INT W PERFORATION AND ABSCESS W/O BLEEDING (2) Diabetes mellitus Current Visit: Yes Status: Acute Assessment & Plan: well controlled currently with SSI Code(s): E11.9 - TYPE 2 DIABETES MELLITUS WITHOUT COMPLICATIONS (3) Hypertension Current Visit: Yes Status: Acute Assessment & Plan: bp well controlled Code(s): I10 - ESSENTIAL (PRIMARY) HYPERTENSION
--- NOTE | 2022-01-10 08:16 | PROG NOTE ---
CONSULT DATE: 01/07/2022 HISTORY: Emory Perez was seen yesterday about 24 hours into his diverticulitis. Today is hospital day #2. He is better. He is on pain medicine. He is voiding satisfactorily. He has had a small bowel movement. He had some flatus. His abdomen is softer. His temperature has been stable. IMPRESSION: The patient seems to have had substantial improvement. He still has a very real course of diverticulitis however. We have started clear liquids. He will probably need a repeat CT scan some time maybe Monday morning before advancement to a regular diet. If he is progressing he may be able to go to full liquids sometime this weekend.
[2022-01-10] MEDS: Klor Con 10 MEQ PO SCH (10:21)
[2022-01-10] MEDS: Lasix 40 MG PO SCH (10:22)
[2022-01-10] MEDS: VITA-BEE WITH C PO SCH (10:22)
[2022-01-10] MEDS: Zinc Gluconate 50 MG PO SCH (10:22)
--- NOTE | 2022-01-10 12:04 | XRAY ---
Indication: Follow-up diverticulitis/perforation. Pain. Multiple contiguous axial images obtained through the abdomen and pelvis using 80 cc Isovue 370 contrast. Enteric contrast also used. Comparison: January 05, 2022. Lung bases demonstrates worsening left base dependent atelectasis. No infiltrate or effusion. Heart not enlarged. Contrasted stomach and bowel loops nonobstructed. The distal descending and proximal sigmoid colon demonstrates grossly stable moderate circumferential wall thickening and stranding again favoring colitis. Enteric contrast confirms intraluminal narrowing again concerning for underlying colonic mass. Grossly stable tiny left colic gutter free fluid. No walled off fluid collection. Previous tiny free air bubbles appears slightly more dispersed but not overall increased in size/number and again favors perforation. Stable fatty hepatomegaly, small hepatic cyst, tiny gallstone, and splenomegaly. Remaining liver, gallbladder, pancreas, spleen, adrenal glands, kidneys, ureters, bladder, and aorta remain unremarkable. Impression: 1. Grossly stable distal descending/proximal sigmoid bowel wall thickening/stranding again favoring colitis with tiny free fluid and tiny free air. Underlying colonic mass again not completely excluded. 2. Again incidental fatty hepatomegaly, splenomegaly, small hepatic cyst, and tiny gallstone.
[2022-01-10] MEDS: xanAX 0.5 MG PO PRN (21:06)
[2022-01-10] MEDS: Paxil 20 MG PO SCH (21:07)
[2022-01-10] MEDS: NEURONTIN 300 MG PO SCH (21:07)
[2022-01-10] MEDS: CLARITIN 10 MG PO SCH (21:07)
[2022-01-11] MEDS: Sodium Chloride 0.9% W/ 20 mEq KCl/LITER 1,000 ML IV SCH (02:44)
[2022-01-11 05:25] LABS: Absolute Neutrophil Ct (ANC) 4.07 (1.4-6.9); Basophil (Absolute #) 0.02 (0-0.4); Eosinophil % 0.8 % (0.00-5.0); Eosinophil (Absolute #) 0.06 (0-0.5); Hematocrit 32.8 % (42-50); Hemoglobin 10.3 gm/dl (12.5-18.0); Lymphocytes % 35.1 % (24.0-44.0); Mean Cell Volume 95.6 fl (78-100); Mean Corpuscular Hgb Concent. 31.4 g/dl (32-36); Mean Platelet Volume 9.6 fl (7.5-11.0); Monocyte (Absolute #) 0.47 (0.0-1.3); Monocytes % 6.6 % (0.0-12.0); Neutrophil % 57.2 % (36.0-66.0); Platelet Count 236 K/mm3 (150-450); Red Blood Count 3.43 M/mm3 (4.1-5.6); White Blood Count 7.1 K/mm3 (4.0-10.5)
[2022-01-11 05:37] LABS: ALBUMIN 3.8 g/dL (3.5-5.0); ALKALINE PHOSPHATASE 62 U/L (38-126); BLOOD UREA NITROGEN 7 mg/dL (9-20); CHLORIDE 102 mmol/L (98-107); Calcium 9.1 mg/dL (8.4-10.2); Carbon Dioxide 27 mmol/L (22-30); Creatinine 1 0.76 mg/dL (0.66-1.25); EST GLOMERULAR FILTRATION RATE > 60.0 ML/MIN; Glucose 118 mg/dL (74-106); Potassium 3.8 mmol/L (3.5-5.1); SGOT/AST 17 U/L (17-59); SGPT/ALT 16 U/L (0-50); SODIUM 139 mmol/L (137-145); Total Protein 7.3 g/dL (6.3-8.2)
[2022-01-11] MEDS: PIPERACILLIN/TAZOBACTAM 3.375 GM in Sodium Chloride 100ML MINI-BAG PLUS 100 ML IV SCH ×2 (06:02→11:57)
--- NOTE | 2022-01-11 08:51 | PCM.DS ---
Discharge Summary Date of Admission: 01/06/22 07:55 Admitting Physician: RAYMUNDO BECKER Consults: Consults on Case 01/06/22 01:17 Consult Surgery ROUTINE 01/11/22 01:23 Nutritional Consult ROUTINE Primary Care Provider: JORDAN MEADE Allergies Allergies No Known Drug Allergies Allergy (Unverified 01/05/22 21:57) Hospital Summary - Hospital Course Hospital Course: patient admitted with diverticulitis with microperforation, treated with IV abx and NPO, improved clinically. ct shows no worsening, he is tolerating a regular diet and has been followed by surgery. doing well, has no pain today. - Vitals & Intake/Output Vital Signs: Vital Signs Temperature 97.7 F 01/11/22 08:00 Pulse Rate 75 01/11/22 08:00 Respiratory Rate 13 01/11/22 08:00 Blood Pressure 126/68 01/11/22 08:00 O2 Sat by Pulse Oximetry 97 01/11/22 08:00 Intake & Output: Intake & Output 01/08/22 01/09/22 01/10/22 01/11/22 11:59 11:59 11:59 11:59 Intake Total 3648 5022 3677 3971 Output Total 1750 1327 7528 5474 Balance 6559 3016 -4974 -6791 Weight 120.2 kg 119.1 kg 118 kg 118.2 kg - Lab Result Diagrams: 01/11/22 04:35 01/11/22 04:35 Lab Results-Last 24 Hrs: Lab Results-Last 24 Hours 01/10/22 01/10/22 01/10/22 Range/Units 12:03 16:17 21:33 WBC (4.0-10.5) K/mm3 RBC (4.1-5.6) M/mm3 Hgb (12.5-18.0) gm/dl Hct (42-50) % MCV (78-100) fl MCH (26-32) pg MCHC (32-36) g/dl RDW (11.5-14.0) % Plt Count (150-450) K/mm3 MPV (7.5-11.0) fl Gran % (36.0-66.0) % Eos # (Auto) (0-0.5) Absolute Lymphs (auto) (1.0-4.6) Absolute Monos (auto) (0.0-1.3) Lymphocytes % (24.0-44.0) % Monocytes % (0.0-12.0) % Eosinophils % (0.00-5.0) % Basophils % (0.0-0.4) % Absolute Granulocytes (1.4-6.9) Basophils # (0-0.4) Sodium (137-145) mmol/L Potassium (3.5-5.1) mmol/L Chloride (98-107) mmol/L Carbon Dioxide (22-30) mmol/L Anion Gap (5-15) MEQ/L BUN (9-20) mg/dL Creatinine (0.66-1.25) mg/dL Estimated GFR ML/MIN Glucose (74-106) mg/dL POC Glucometer 174 H 103 107 H (74 to 106) mg/dL Calcium (8.4-10.2) mg/dL Total Bilirubin (0.2-1.3) mg/dL AST (17-59) U/L ALT (0-50) U/L Alkaline Phosphatase (38-126) U/L Serum Total Protein (6.3-8.2) g/dL Albumin (3.5-5.0) g/dL 01/11/22 01/11/22 01/11/22 Range/Units 04:35 04:35 07:27 WBC 7.1 (4.0-10.5) K/mm3 RBC 3.43 L (4.1-5.6) M/mm3 Hgb 10.3 L (12.5-18.0) gm/dl Hct 32.8 L (42-50) % MCV 95.6 (78-100) fl MCH 30.0 (26-32) pg MCHC 31.4 L (32-36) g/dl RDW 14.0 (11.5-14.0) % Plt Count 236 (150-450) K/mm3 MPV 9.6 (7.5-11.0) fl Gran % 57.2 (36.0-66.0) % Eos # (Auto) 0.06 (0-0.5) Absolute Lymphs (auto) 2.50 (1.0-4.6) Absolute Monos (auto) 0.47 (0.0-1.3) Lymphocytes % 35.1 (24.0-44.0) % Monocytes % 6.6 (0.0-12.0) % Eosinophils % 0.8 (0.00-5.0) % Basophils % 0.3 (0.0-0.4) % Absolute Granulocytes 4.07 (1.4-6.9) Basophils # 0.02 (0-0.4) Sodium 139 (137-145) mmol/L Potassium 3.8 (3.5-5.1) mmol/L Chloride 102 (98-107) mmol/L Carbon Dioxide 27 (22-30) mmol/L Anion Gap 13.0 (5-15) MEQ/L BUN 7 L (9-20) mg/dL Creatinine 0.76 (0.66-1.25) mg/dL Estimated GFR > 60.0 ML/MIN Glucose 118 H (74-106) mg/dL POC Glucometer 115 H (74 to 106) mg/dL Calcium 9.1 (8.4-10.2) mg/dL Total Bilirubin 0.70 (0.2-1.3) mg/dL AST 17 (17-59) U/L ALT 16 (0-50) U/L Alkaline Phosphatase 62 (38-126) U/L Serum Total Protein 7.3 (6.3-8.2) g/dL Albumin 3.8 (3.5-5.0) g/dL Micro Results-Entire Visit: Accuchecks Date 01/11/22 Date 01/10/22 Time 07:25 Time 21:39 - Radiology Exams Ordered Rad Exams-Entire Visit: Radiology Procedures Category Date Time Status ABDOMEN AND PELVIS W CONTRAST [CT] Urgent Exams 01/10/22 11:34 Completed - Procedures and Test Procedures and Tests throughout Hospitalization: Therapy Orders & Screens 01/06/22 03:51 Oxygen Nasal Cannula 2 lpm Comment: Diagnosis: bowel perforation 01/06/22 06:58 Incentive Spirometry UD Comment: Diagnosis: bowel perforation Discharge Exam General Appearance: no apparent distress, alert, obese Neurologic Exam: alert, oriented x 3 Respiratory Exam: normal breath sounds, lungs clear, No respiratory distress Cardiovascular Exam: regular rate/rhythm, normal heart sounds Gastrointestinal/Abdomen Exam: soft, normal bowel sounds, No tenderness Extremity Exam: normal inspection, normal range of motion Skin Exam: normal color, warm, dry Final Diagnosis/Problem List - Final Discharge Diagnosis/Problem (1) Diverticulitis of colon with perforation Current Visit: Yes Status: Acute Assessment & Plan: home on po abx, will have outpatient f/u with surgery and they will arrange colonoscopy later Code(s): K57.20 - DVTRCLI OF LG INT W PERFORATION AND ABSCESS W/O BLEEDING (2) Diabetes mellitus Current Visit: Yes Status: Acute Code(s): E11.9 - TYPE 2 DIABETES MELLITUS WITHOUT COMPLICATIONS (3) Hypertension Current Visit: Yes Status: Acute Code(s): I10 - ESSENTIAL (PRIMARY) H YPERTENSION - Discharge Disposition: Home, Self-Care Condition: Stable Prescriptions: New Ciprofloxacin [Cipro 500 MG] 500 mg PO BID #14 tablet Metronidazole 500 mg [Flagyl 500 MG] 500 mg PO TID #21 tablet Continue Zinc 1 tab PO DAILY Potassium Chloride 20 meq PO DAILY PARoxetine HCl [Paxil] 1 tab PO HS Metformin HCl 500 mg [Glucophage 500 MG] 500 mg PO DAILY Levocetirizine Dihydrochloride [Xyzal] 5 mg PO HS Hydrocodone/Acetaminophen [Hydrocodone-Acetamin 7.5-325] 1 tab PO DAILY Gabapentin 600 mg PO HS Furosemide 40 mg PO DAILY Folic Acid/Vit B Complex and C [Super B Complex Tablet] 1 tab PO DAILY Benazepril HCl 10 mg [Lotensin 10 MG] 1 tab PO DAILY Alprazolam [Xanax] 0.5 mg PO BIDPRN PRN PRN Reason: Anxiety Instructions: Perforation of the GI Tract Additional Instructions: DISCUSS HAVING A SLEEP STUDY DONE WITH YOUR PHYSICIAN AT YOUR FOLLOWUP APT. ( D /T DECREASING SATS WHILE ASLEEP) Follow up with: JORDAN EMADE [Primary Care Provider] - (NO LONGER WANTS TO USE THIS PROVIDER) WHITNEY VIVEROS [ACTIVE STAFF] - (will need to schedule appointment in 2 weeks to prep for colonscopy. needs to call the office)
[2022-01-11] MEDS: Klor Con 10 MEQ PO SCH (09:31)
[2022-01-11] MEDS: Zinc Gluconate 50 MG PO SCH (09:31)
[2022-01-11] MEDS: Lasix 40 MG PO SCH (09:31)
[2022-01-11] MEDS: VITA-BEE WITH C PO SCH (09:31)
[2022-01-11 12:46] VITALS: BP 127/70; PULSE 70; O2SAT 96
== END 2022-01-11 13:12 | disposition home or self-care (01) | DRG 392 ==
LOC: ED 21:35 → MED SURG 01-06 01:08 → OBSVTOIN 01-06 07:55
PROVIDERS: ADMIT Family Medicine; ATTEND Family Medicine
DX: K57.20 Diverticulitis of large intestine with perforation and abscess without bleeding (principal); E87.1 Hypo-osmolality and hyponatremia; E11.9 Type 2 diabetes mellitus without complications; I10 Essential (primary) hypertension; Z79.899 Other long term (current) drug therapy; Z20.828 Contact with and (suspected) exposure to other viral communicable diseases
CPT/HCPCS: 0241U; 36000; 36415; 74177; 80048; 80053; 80061; 81015; 82947; 83036; 83690; 83721; 83735; 85025; 85027; 94762; 96365; 99285; J1940; J2270; A9270-GY

== ENCOUNTER 2022-02-24 07:29 | Day surgery (SDC) | payer BC ==
--- NOTE | 2022-02-17 09:18 | HP ---
DATE OF SURGERY: 02/24/2022 HISTORY OF PRESENT ILLNESS: The patient is a 41-year-old male who presents with a follow up from microperforation for diverticulitis. The patient has not had a colonoscopy to date. The patient did not have any surgeries to date. The patient is here for evaluation and screening. PAST MEDICAL HISTORY: Anxiety, depression, diabetes. PAST SURGICAL HISTORY: None. ALLERGIES: NKDA. MEDICATIONS: Potassium, Lasix, hydrocodone, paroxetine, gabapentin, Xanax. FAMILY HISTORY: Diabetes, cancer, hypertension. SOCIAL HISTORY: Occasional alcohol. REVIEW OF SYSTEMS: CONSTITUTIONAL: Denies fever or chills. CHEST: Denies shortness of breath. CVS: Denies chest pain. ABDOMEN: Denies abdominal pain, nausea, vomiting, diarrhea, constipation or rectal bleeding. PHYSICAL EXAMINATION: GENERAL: No acute distress. CHEST: Nonlabored. No shortness of breath. CVS: Regular rate and rhythm. ABDOMEN: Soft, nontender. IMPRESSION: Follow up diverticulitis with microperforation, screening. PLAN: Colonoscopy with Dr. Eleazar Coronado. As dictated by Em Ayon NP.
[2022-02-24] MEDS ORDERED: Lactated Ringers 1,000 ML IV SCH (08:00)
[2022-02-24] MEDS ORDERED: DIPRIVAN 200 MG/20 ML IV ONE (09:07)
[2022-02-24] MEDS ORDERED: Versed 2 MG/2 ML Injection ONE (09:07)
[2022-02-24 09:55] VITALS: BP 110/71; PULSE 78; O2SAT 97
--- NOTE | 2022-02-24 11:12 | OP ---
SURGERY DATE/TIME: 02/24/2022 0915 PREOPERATIVE DIAGNOSIS: Follow up of severe diverticulosis/diverticulitis with perforation and free air. POSTOPERATIVE DIAGNOSES: 1) Minimal sigmoid diverticulosis. 2) The patient had a 1 cm polyp this was taken with a hot biopsy forceps to extinction. PROCEDURE: Colonoscopy complete to cecum with hot polypectomy x1. SURGEON: Eleazar Coronado M.D. ANESTHESIA: MAC. COMPLICATIONS: None. CONDITION: Stable. INDICATION: A patient with recent diverticulitis with perforation. He has not had an endoscopy and is 41 years old. DESCRIPTION OF PROCEDURE: He is taken to endoscopy. Left lateral decubitus position. MAC sedation provided and was excellent. Anal digital examination satisfactory. Scope introduced. The scope advanced to the cecum. Cecum, ileocecal valve, appendiceal orifice was normal. Ascending, hepatic, transverse, splenic, descending, in the mid sigmoid a 1 cm polyp was picked up and taken to extinction with hot biopsy forceps. There was scant sigmoid diverticulosis. Rectum and anus mild hemorrhoids. The patient tolerated the procedure satisfactorily. There is no suggestion that he needed any immediate surgical intervention for his diverticular disease. He will need a five year follow up for polypoid disease of the colon.
== END 2022-02-24 10:00 | disposition home or self-care (01) ==
LOC: SDC 07:29
PROVIDERS: ATTEND Surgery
DX: K57.30 Diverticulosis of large intestine without perforation or abscess without bleeding (principal); K63.5 Polyp of colon; K64.9 Unspecified hemorrhoids; E11.9 Type 2 diabetes mellitus without complications
CPT/HCPCS: 82947; J2250; J2704

== ENCOUNTER 2023-05-08 15:22 | Emergency (ER) | payer BC ==
[2023-05-08] MEDS ORDERED: Zofran 4 MG/2 ML VIAL IV ONE (15:26)
[2023-05-08] MEDS ORDERED: TORAdol 30 mg Injection IV ONE (15:26)
[2023-05-08] MEDS ORDERED: Hydromorphone 1 mg/ml Injection IV ONE (15:26)
[2023-05-08] MEDS ORDERED: Sodium Chloride 0.9% 1000 ML 1,000 ML IV STA (15:26)
--- NOTE | 2023-05-08 15:26 | ERPHSYRPT ---
- History of Present Illness Time Seen by Provider: 05/08/23 15:25 Historian: patient Exam Limitations: no limitations Physician History: This is an obese 43-year-old white male patient of Dr. Robert who is diabetic and received Ozempic injection last week. 2 days ago, the patient began having some left flank pain as well as vomiting and diarrheal type stools. Patient has a history of chronic back pain and chronic sciatica. He continues to have the left flank pain. He no longer has any type of anterior abdominal wall pain. Approxi-1 to 2 years ago he had a "bowel perforation" which did not require surgical intervention per his report. Patient has had a normal colonoscopy on 2 different occasions. Patient has a history anxiety, sleep apnea and type 2 diabetes. Patient denies shortness of breath. Patient denies fever, patient denies cough. Patient denies chest pain. Timing/Duration: day(s) (2) Activities at Onset: none Quality: aching Abdominal Pain Onset Location: flank (Left) Severity of Pain-Max: mild (To moderate) Severity of Pain-Current: mild (To moderate) Modifying Factors: Improves With: vomiting, other (Diarrhea) Associated Symptoms: diarrhea, nausea, vomiting Previous symptoms: no prior history, no recent treatment Allergies/Adverse Reactions: No Known Drug Allergies Allergy (Verified 05/08/23 15:35) Home Medications: Furosemide 40 mg PO DAILY 01/05/22 [History] Gabapentin 600 mg PO HS 01/05/22 [History] Hydrocodone/Acetaminophen [Hydrocodone-Acetamin 7.5-325] 1 tab PO DAILY 01/05/22 [History] Levocetirizine Dihydrochloride [Xyzal] 5 mg PO HS 01/05/22 [History] Potassium Chloride 20 meq PO DAILY 01/05/22 [History] Zinc 1 tab PO DAILY 01/05/22 [History] Alprazolam [Xanax] 0.5 mg PO BIDPRN PRN 01/08/22 [History] Acetaminophen [Tylenol] 325 mg PO DAILY PRN 02/14/22 [History] B-Complex with Vitamin C [Super B with Vit C] 1 tab PO DAILY 02/14/22 [History] Whitakers-3/Dha/Epa/Fish Oil [[facility] Whitakers-3 1,000 mg] 1,000 mg PO DAILY 02/14/22 [History] Semaglutide [Ozempic] 0.5 mg SQ WEEKLY 02/24/22 [History] Hx Tetanus, Diphtheria Vaccination/Date Given: Yes Hx Influenza Vaccination/Date Given: Yes Hx Pneumococcal Vaccination/Date Given: No Travel Risk - International Travel Have you traveled outside of the country in past 3 weeks: No - Coronavirus Screening Are you exhibiting any of the following symptoms?: No Close contact with a COVID-19 positive Pt in past 14-21 Days: No - Vaccine Status Have you recieved a Covid-19 vaccination: Yes 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 - Vaccination Dates Date of 2cond Vaccination (if applicable): 11/2020 - Review of Systems Constitutional: No Symptoms Ears, Nose, & Throat: No Symptoms Respiratory: No Symptoms Cardiac: No Symptoms Abdominal/Gastrointestinal: Nausea, Vomiting, Diarrhea, Appetite Changes Genitourinary Symptoms: Flank Pain (Left) Musculoskeletal: Back Pain, No Injury (Left side) Skin: No Symptoms Neurological: No Symptoms Psychological: No Symptoms Endocrine: No Symptoms Hematologic/Lymphatic: No Symptoms Immunological/Allergic: No Symptoms All Other Systems: Reviewed and Negative - Past Medical History Pertinent Past Medical History: Yes Neurological History: No Pertinent History ENT History: No Pertinent History Cardiac History: No Pertinent History Respiratory History: No Pertinent History, Sleep Apnea Endocrine Medical History: Diabetes Type II Musculoskeletal History: No Pertinent History GI Medical History: No Pertinent History History: No Pertinent History Psycho-Social History: Anxiety, Depression Male Reproductive Disorders: No Pertinent History Other Medical History: neuropathy. sciatica - Past Surgical History Past Surgical History: No Neuro Surgical History: No Pertinent History Cardiac: No Pertinent History Respiratory: No Pertinent History Gastrointestinal: No Pertinent History Genitourinary: No Pertinent History Musculoskeletal: No Pertinent History Male Surgical History: No Pertinent History - Social History Smoking Status: Never smoker Exposure to second hand smoke: No Drug Use: none Patient Lives Alone: No - Nursing Vital Signs Nursing Vital Signs: Initial Vital Signs Temperature 98.3 F 05/08/23 15:36 Pulse Rate 98 H 05/08/23 15:36 Respiratory Rate 20 05/08/23 15:36 Blood Pressure 152/100 05/08/23 15:36 O2 Sat by Pulse Oximetry 97 05/08/23 15:36 Pain Scale Pain Intensity 2 - Physical Exam General Appearance: no apparent distress, alert, anxiety, obese Eye Exam: PERRL/EOMI, eyes nml inspection Ears, Nose, Throat Exam: normal ENT inspection, moist mucous membranes Neck Exam: normal inspection, non-tender, supple, full range of motion Respiratory Exam: normal breath sounds, lungs clear, airway intact, No chest tenderness, No respiratory distress Cardiovascular Exam: regular rate/rhythm, normal heart sounds, normal peripheral pulses Gastrointestinal/Abdomen Exam: soft, normal bowel sounds, No tenderness Rectal Exam: not done Back Exam: normal inspection, normal range of motion, CVA tenderness, No vertebral tenderness Extremity Exam: normal inspection (Left), normal range of motion, pelvis stable Neurologic Exam: alert, oriented x 3, cooperative, direct support professional home health II-XII nml as tested, normal mood/affect, nml cerebellar function, nml station & gait, sensation nml Skin Exam: normal color, warm, dry Lymphatic Exam: No adenopathy SpO2 Interpretation: normal O2 Delivery: Room Air - Course Nursing assessment & vital signs reviewed: Yes Ordered Tests: Active Orders 24 hr Category Date Time Status IV Insertion STAT Care 05/08/23 15:34 Active ABDOMEN AND PELVIS W/0 CONTRAS [CT] Stat Exams 05/08/23 15:26 Completed AMYLASE Stat Lab 05/08/23 15:40 Completed CBC W DIFF Stat Lab 05/08/23 15:40 Completed CMP Stat Lab 05/08/23 15:40 Completed LIPASE Stat Lab 05/08/23 15:40 Completed UA W/RFX UR CULTURE Stat Lab 05/08/23 15:33 Completed Medication Summary Discontinued Medications Generic Name Dose Route Start Last Admin Trade Name Freq PRN Reason Stop Dose Admin Hydromorphone HCl 1 mg 05/08/23 15:26 Hydromorphone 1 Mg/1ml Inj IV 05/08/23 15:27 STAT ONE Sodium Chloride 1,000 mls @ 999 mls/hr 05/08/23 15:26 05/08/23 15:50 Sodium Chloride 0.9% 1000 Ml IV 05/08/23 16:26 999 mls/hr .Q1H1M STA Administration Sodium Chloride Confirm 05/08/23 15:48 Sodium Chloride 0.9% 1000 Ml Administered 05/08/23 15:49 Dose 1,000 mls @ ud .ROUTE .STK-MED ONE Ketorolac Tromethamine 30 mg 05/08/23 15:26 Ketorolac Tromethamine 30 Mg/Ml Inj IV 05/08/23 15:27 STAT ONE Ondansetron HCl 4 mg 05/08/23 15:26 Ondansetron Hcl 4 Mg/2 Ml Vial IV 05/08/23 15:27 STAT ONE Lab/Rad Data: Laboratory Result Diagrams 05/08/23 15:40 05/08/23 15:40 Laboratory Results 05/08/23 05/08/23 05/08/23 Range/Units 15:40 15:40 15:33 WBC 9.6 (4.0-10.5) x10^3/uL RBC 4.47 (4.1-5.6) x10^6/uL Hgb 13.9 (12.5-18.0) g/dL Hct 41.6 L (42-50) % MCV 93.1 (78-100) fL MCH 31.1 (26-32) pg MCHC 33.4 (32-36) g/dL RDW 13.0 (11.5-14.0) % Plt Count 211 (150-450) x10^3/uL MPV 9.6 (7.5-11.0) fL Gran % 67.3 H (36.0-66.0) % Immature Gran % (Auto) 0.3 (0.00-0.4) % Nucleat RBC Rel Count 0.0 (0.00-0.1) % Eos # (Auto) 0.04 (0-0.5) x10^3/uL Immature Gran # (Auto) 0.03 (0.00-0.03) x10^3u/L Absolute Lymphs (auto) 2.50 (1.0-4.6) x10^3/uL Absolute Monos (auto) 0.55 (0.0-1.3) x10^3/uL Absolute Nucleated RBC 0.00 (0.00-0.01) x10^3u/L Lymphocytes % 26.0 (24.0-44.0) % Monocytes % 5.7 (0.0-12.0) % Eosinophils % 0.4 (0.00-5.0) % Basophils % 0.3 (0.0-0.4) % Absolute Granulocytes 6.47 (1.4-6.9) x10^3/uL Basophils # 0.03 (0-0.4) x10^3/uL Sodium 139 (137-145) mmol/L Potassium 4.0 (3.5-5.1) mmol/L Chloride 102 (98-107) mmol/L Carbon Dioxide 25 (22-30) mmol/L Anion Gap 16.5 H (5-15) MEQ/L BUN 13 (9-20) mg/dL Creatinine 0.80 (0.66-1.25) mg/dL Estimated GFR > 60.0 ML/MIN Glucose 132 H (74-106) mg/dL Calcium 9.2 (8.4-10.2) mg/dL Total Bilirubin 0.90 (0.2-1.3) mg/dL AST 25 (17-59) U/L ALT 26 (0-50) U/L Alkaline Phosphatase 72 (38-126) U/L Serum Total Protein 8.0 (6.3-8.2) g/dL Albumin 4.5 (3.5-5.0) g/dL Amylase 57 (30-110) U/L Lipase 172 (23-300) U/L Urine Color Yellow (Yellow) Urine Appearance Clear (Clear) Urine pH 5.5 (4.6-8.0) Ur Specific [place] 1.020 (1.005-1.030) Urine Protein Negative (Negative) Urine Glucose (UA) Negative (Negative) mg/dL Urine Ketones Negative (Negative) Urine Blood Negative (Negative) Urine Nitrite Negative (Negative) Urine Bilirubin Negative (Negative) Urine Urobilinogen 0.2 (0.2) mg/dL Ur Leukocyte Esterase Small A (Negative) U Hyaline Cast (Auto) None Seen (0-2) /LPF Urine Microscopic RBC 0-2 (0-5) /HPF Urine Microscopic WBC 0-2 (0-5) /HPF Ur Epithelial Cells None Seen (None Seen) /HPF Calcium Oxalate Crystal 6-10 A (None Seen) /HPF Urine Bacteria Rare A (None Seen) /HPF Urine Culture Reflexed NO (NO) - Progress Progress: improved, pain not gone completely Progress Note: 05/08/23 16:42 The CAT scan of the abdomen pelvis without contrast shows noncontrasted bowel loops that are nonobstructed and there is a normal appendix. There is minimal descending and sigmoid colon diverticulosis without gross diverticulitis. The remainder of the CT scan of the abdomen pelvis without contrast is negative. This patient's medical issue is 1 of moderate complexity. Level of complexity in the work-up performed is based on review of the patient's past medical history, review the patient's medication list, review of the patient's drug allergy list, history of present illness, and physical findings on examination. An IV line was placed in the patient. Patient received 1 L of normal saline s olution. He refused the medications at this time. We obtained a urinalysis, CBC, CMP, amylase and lipase levels. I reviewed the CT scan of the and pelvis without contrast impression as well as reviewed and interpreted the lab results. The patient does not have any acute, emergent medical issue. We will discharge the patient to home with instructions to follow-up with his prescribing provider tomorrow morning, 05/09/2023, for further evaluation management. Counseled pt/family regarding: lab results, diagnosis, need for follow-up, rad results Medical Desision Making - Diagnostic Testing Diagnostic test were ordered, analyzed, and reviewed by me: Yes Radiological Interpretation: Reviewed by me, Teleradiologist Report - Risk of complications Low Risk: Low risk of morbidity from additional dx testing or treatment - Departure Departure Disposition: Home Clinical Impression: Left-sided back pain Condition: Stable Critical Care Time: No Referrals: ALLIE ROBERT MD [Primary Care Provider] - Follow up/PCP as directed Additional Instructions: Drink plenty of fluids. If there are no contraindications, may take Tylenol and ibuprofen for pain control. Call your primary care provider tomorrow morning, 05/09/2023, to make a follow-up appointment for further evaluation management.
[2023-05-08 15:44] VITALS: TEMP 98.3
[2023-05-08 15:44] LABS: Absolute Neutrophil Ct (ANC) 6.47 x10^3/uL (1.4-6.9); BASOPHIL % 0.3 % (0.0-0.4); Basophil (Absolute #) 0.03 x10^3/uL (0-0.4); Eosinophil % 0.4 % (0.00-5.0); Eosinophil (Absolute #) 0.04 x10^3/uL (0-0.5); Hematocrit 41.6 % (42-50); Hemoglobin 13.9 g/dL (12.5-18.0); IMMATURE GRAN # 0.03 x10^3u/L (0.00-0.03); IMMATURE GRAN % 0.3 % (0.00-0.4); Mean Cell Volume 93.1 fL (78-100); Mean Corpuscular Hemoglobin 31.1 pg (26-32); Mean Corpuscular Hgb Concent. 33.4 g/dL (32-36); Mean Platelet Volume 9.6 fL (7.5-11.0); Monocyte (Absolute #) 0.55 x10^3/uL (0.0-1.3); Monocytes % 5.7 % (0.0-12.0); Neutrophil % 67.3 % (36.0-66.0); Platelet Count 211 x10^3/uL (150-450); Red Blood Count 4.47 x10^6/uL (4.1-5.6); White Blood Count 9.6 x10^3/uL (4.0-10.5)
[2023-05-08] MEDS ORDERED: Sodium Chloride 0.9% 1000 ML 1,000 ML ONE (15:48)
[2023-05-08 15:58] LABS: ALBUMIN 4.5 g/dL (3.5-5.0); ALKALINE PHOSPHATASE 72 U/L (38-126); AMYLASE 57 U/L (30-110); ANION GAP 16.5 MEQ/L (5-15); BLOOD UREA NITROGEN 13 mg/dL (9-20); CHLORIDE 102 mmol/L (98-107); Calcium 9.2 mg/dL (8.4-10.2); Carbon Dioxide 25 mmol/L (22-30); EST GLOMERULAR FILTRATION RATE > 60.0 ML/MIN; Glucose 132 mg/dL (74-106); LIPASE 172 U/L (23-300); SGOT/AST 25 U/L (17-59); SGPT/ALT 26 U/L (0-50); SODIUM 139 mmol/L (137-145)
[2023-05-08 16:15] LABS: Appearance Clear (Clear); Bilirubin Negative (Negative); Blood Negative (Negative); Epithelial Cells None Seen /HPF (None Seen); Glucose, Urine Negative (Negative); Ketones Negative (Negative); Leukocyte Esterase Small (Negative); Nitrite Negative (Negative); Ph 5.5 (4.6-8.0); Protein,Urine Dip Negative (Negative); RBC 0-2 /HPF (0-5); Urobilinogen 0.2 mg/dL (0.2); WBC 0-2 /HPF (0-5)
[2023-05-08 16:16] LABS: ADD URINE CULTURE? NO (NO); Bacteria Rare /HPF (None Seen); Hyaline Casts None Seen /LPF (0-2)
[2023-05-08 16:25] VITALS: BP 134/97; PULSE 92; RESP 18; O2SAT 96
--- NOTE | 2023-05-08 16:39 | XRAY ---
Indication: Flank pain and constipation for days. Multiple contiguous axial images obtained through abdomen and pelvis without contrast. Comparison: January 10, 2022 Lung bases clear. Heart not enlarged. Stomach mildly distended with food/fluid. Noncontrasted bowel loops appear nonobstructed with normal appendix. There remains minimal descending/sigmoid diverticulosis today without gross diverticulitis. Again 21 cm mild fatty hepatomegaly and stable 1 cm inferior right lobe hepatic cyst. No free fluid/air. Remaining liver, gallbladder, pancreas, spleen, adrenal glands, kidneys, ureters, bladder, and aorta are unremarkable for noncontrast exam. Osseous structures intact again with mild degenerative changes throughout the spine and both hips. No ventral or inguinal hernias. Impression: 1. Again colonic diverticulosis, fatty hepatomegaly, hepatic cyst, and chronic bony findings. 2. Remaining CT abdomen/pelvis without contrast exam is negative.
== END 2023-05-08 17:06 | disposition home or self-care (01) ==
LOC: ED 15:22
DX: M54.9 Dorsalgia, unspecified (principal); R10.9 Unspecified abdominal pain; E11.9 Type 2 diabetes mellitus without complications; Z79.85 Long-term (current) use of injectable non-insulin antidiabetic drugs; Z79.899 Other long term (current) drug therapy
CPT/HCPCS: 36000; 36415; 74176; 80053; 81001; 82150; 83690; 85025; 96360; 99284

== ENCOUNTER 2023-11-03 16:01 | Emergency (ER) | payer BC ==
[2023-11-03 16:17] VITALS: TEMP 98.1
[2023-11-03] MEDS ORDERED: CLONIDINE 0.1 MG TABLET PO ONE (16:33)
[2023-11-03] MEDS ORDERED: CLONIDINE 0.1 MG TABLET ONE (16:36)
--- NOTE | 2023-11-03 16:46 | ERPHSYRPT ---
- History of Present Illness Source: patient, other (Spouse) Exam Limitations: no limitations Patient Subjective Stated Complaint: hypertension Triage Nursing Assessment: Pt brought self to the ER, hypertensive, denies pain, denies chest pain, pt was placed on losartan [address] Robetr but doesn't have an appt until 11/17, pt was having nose bleeds about 2 weeks ago and passed out Monday night at home, pulses normal, skin n/w/d, no difficulty with breathing, doesn't appear to be in any distress Physician History: Patient is a 43-year-old gentleman with hypertension x 2 days. Patient works at a local [employer]. His blood pressure has been elevated for 2 days, so he called his PCP who started him on losartan. Patient's spouse states that he had a syncopal episode 4 days ago. He denies any chest pain, dyspnea, headache, nausea, vomiting, focal weakness, but he has had some diarrhea. Past medical history includes diabetes mellitus type 2 and 1 pack a day tobacco use until 6 years ago and now vapes. Blood pressure 176/116 upon ER arrival. Timing/Duration: other ( hypertension x 2 days/syncopal episode 4 days ago) Severity: moderate Modifying Factors: Improves With: nothing Associated Symptoms: denies symptoms Allergies/Adverse Reactions: No Known Drug Allergies Allergy (Verified 11/03/23 16:18) Home Medications: Furosemide 40 mg PO DAILY 01/05/22 [History] Gabapentin 600 mg PO HS 01/05/22 [History] Levocetirizine Dihydrochloride [Xyzal] 5 mg PO HS 01/05/22 [History] Potassium Chloride 20 meq PO DAILY 01/05/22 [History] Zinc 1 tab PO DAILY 01/05/22 [History] Alprazolam [Xanax] 0.5 mg PO HS 01/08/22 [History] Acetaminophen [Tylenol] 325 mg PO DAILY PRN 02/14/22 [History] B-Complex with Vitamin C [Super B with Vit C] 1 tab PO DAILY 02/14/22 [History] Semaglutide [Ozempic] 0.5 mg SQ WEEKLY 02/24/22 [History] Ibuprofen [Ibu] 800 mg PO TID 11/03/23 [History] Losartan Potassium 50 mg [Cozaar 50 MG] 50 mg PO DAILY 11/03/23 [History] Hx Tetanus, Diphtheria Vaccination/Date Given: Yes Hx Influenza Vaccination/Date Given: Yes Hx Pneumococcal Vaccination/Date Given: No Travel Risk - International Travel Have you traveled outside of the country in past 3 weeks: No - Coronavirus Screening Are you exhibiting any of the following symptoms?: No Close contact with a COVID-19 positive Pt in past 14-21 Days: No - Vaccine Status Have you recieved a Covid-19 vaccination: Yes 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 - Vaccination Dates Date of 2cond Vaccination (if applicable): 11/2020 - Review of Systems Constitutional: No Symptoms Eyes: No Symptoms Ears, Nose, & Throat: No Symptoms Respiratory: No Symptoms Cardiac: No Symptoms Abdominal/Gastrointestinal: No Symptoms Genitourinary Symptoms: No Symptoms Musculoskeletal: No Symptoms Skin: No Symptoms Neurological: Headache Psychological: No Symptoms Endocrine: No Symptoms Hematologic/Lymphatic: No Symptoms Immunological/Allergic: No Symptoms - Past Medical History Pertinent Past Medical History: Yes Neurological History: No Pertinent History ENT History: No Pertinent History Cardiac History: No Pertinent History Respiratory History: No Pertinent History, Sleep Apnea Endocrine Medical History: Diabetes Type II Musculoskeletal History: No Pertinent History GI Medical History: No Pertinent History History: No Pertinent History Psycho-Social History: Anxiety, Depression Male Reproductive Disorders: No Pertinent History Other Medical History: neuropathy. sciatica - Past Surgical History Past Surgical History: No Neuro Surgical History: No Pertinent History Cardiac: No Pertinent History Respiratory: No Pertinent History Gastrointestinal: No Pertinent History Genitourinary: No Pertinent History Musculoskeletal: No Pertinent History Male Surgical History: No Pertinent History - Social History Smoking Status: Former smoker Exposure to second hand smoke: No Drug Use: none Patient Lives Alone: No - Nursing Vital Signs Nursing Vital Signs: Initial Vital Signs Temperature 98.1 F 11/03/23 16:09 Pulse Rate 93 H 11/03/23 16:09 Respiratory Rate 15 11/03/23 16:09 Blood Pressure 176/118 11/03/23 16:09 O2 Sat by Pulse Oximetry 98 11/03/23 16:09 Pain Scale Pain Intensity 0 Hypertensive - Physical Exam General Appearance: no apparent distress, anxiety Eye Exam: PERRL/EOMI, eyes nml inspection Ears, Nose, Throat Exam: normal ENT inspection, TMs normal, pharynx normal, moist mucous membranes Neck Exam: normal inspection, non-tender, supple, No meningismus, No mass, No Brudzinski, No Kernig's Respiratory Exam: normal breath sounds, lungs clear, airway intact, No respiratory distress Cardiovascular Exam: regular rate/rhythm, normal heart sounds, capillary refill <2 sec, No murmur Gastrointestinal/Abdomen Exam: soft, normal bowel sounds, No tenderness Back Exam: normal inspection, normal range of motion Extremity Exam: normal inspection, normal range of motion Neurologic Exam: alert, oriented x 3, cooperative, manager fiber II-XII nml as tested, normal mood/affect, nml cerebellar function, nml station & gait, sensation nml Skin Exam: normal color, warm, dry Lymphatic Exam: No adenopathy SpO2 Interpretation: normal SpO2: 98 O2 Delivery: Room Air - Course Nursing assessment & vital signs reviewed: Yes EKG Interpreted by Me: RATE ( normal sinus rhythm/rate 88/normal QT/mildly prolonged QTc/no acute ST segment changes/normal limit P wave/artifact present/interpreted contemporaneously per ER physician) - CT Exams Head CT Interpretation: Discussed w/radiologist (Right maxillary sinusitis otherwise negative) Ordered Tests: Active Orders 24 hr Category Date Time Status EKG-ER Only STAT Care 11/03/23 16:34 Active HEAD WITHOUT CONTRAST [CT] Stat Exams 11/03/23 16:35 Taken CBC W DIFF Stat Lab 11/03/23 17:15 Completed CMP Stat Lab 11/03/23 17:15 Completed PROTIME WITH INR Stat Lab 11/03/23 17:15 Completed PTT Stat Lab 11/03/23 17:15 Completed TROPONIN Q4H Lab 11/03/23 17:15 Completed TROPONIN Q4H Lab 11/03/23 20:45 Ordered Medication Summary Discontinued Medications Generic Name Dose Route Start Last Admin Trade Name Wangq PRN Reason Stop Dose Admin Clonidine 0.2 mg 11/03/23 16:33 11/03/23 16:36 Clonidine Hcl 0.1 Mg Tablet PO 11/03/23 16:34 0.2 mg STAT ONE Administration Clonidine Confirm 11/03/23 16:36 Clonidine Hcl 0.1 Mg Tablet Administered 11/03/23 16:37 Dose 0.2 mg .ROUTE .STK-MED ONE Lab/Rad Data: Laboratory Result Diagrams 11/03/23 17:15 11/03/23 17:15 Laboratory Results 11/03/23 11/03/2311/03/24 Range/Units 17:15 17:15 17:15 WBC (4.0-10.5) x10^3/uL RBC (4.1-5.6) x10^6/uL Hgb (12.5-18.0) g/dL Hct (42-50) % MCV (78-100) fL MCH (26-32) pg MCHC (32-36) g/dL RDW (11.5-14.0) % Plt Count (150-450) x10^3/uL MPV (7.5-11.0) fL Gran % (36.0-66.0) % Immature Gran % (Auto) (0.00-0.4) % Nucleat RBC Rel Count (0.00-0.1) % Eos # (Auto) (0-0.5) x10^3/uL Immature Gran # (Auto) (0.00-0.03) x10^3u/L Absolute Lymphs (auto) (1.0-4.6) x10^3/uL Absolute Monos (auto) (0.0-1.3) x10^3/uL Absolute Nucleated RBC (0.00-0.01) x10^3u/L Lymphocytes % (24.0-44.0) % Monocytes % (0.0-12.0) % Eosinophils % (0.00-5.0) % Basophils % (0.0-0.4) % Absolute Granulocytes (1.4-6.9) x10^3/uL Basophils # (0-0.4) x10^3/uL PT 11.1 (9.4-12.5) SECONDS INR 1.02 (0.8-3.0) APTT 26.2 (25.1-36.5) SECONDS Sodium 137 (137-145) mmol/L Potassium 3.9 (3.5-5.1) mmol/L Chloride 101 (98-107) mmol/L Carbon Dioxide 28 (22-30) mmol/L Anion Gap 12.3 (5-15) MEQ/L BUN 14 (9-20) mg/dL Creatinine 0.71 (0.66-1.25) mg/dL Estimated GFR 117.5 ML/MIN Glucose 104 (74-106) mg/dL Calcium 9.8 (8.4-10.2) mg/dL Total Bilirubin 1.60 H (0.2-1.3) mg/dL AST 31 (17-59) U/L ALT 30 (0-50) U/L Alkaline Phosphatase 70 (38-126) U/L Troponin I < 0.012 (0.000-0.034) ng/mL Serum Total Protein 8.4 H (6.3-8.2) g/dL Albumin 4.7 (3.5-5.0) g/dL 11/03/23 Range/Units 17:15 WBC 9.9 (4.0-10.5) x10^3/uL RBC 4.71 (4.1-5.6) x10^6/uL Hgb 14.4 (12.5-18.0) g/dL Hct 43.5 (42-50) % MCV 92.4 (78-100) fL MCH 30.6 (26-32) pg MCHC 33.1 (32-36) g/dL RDW 12.3 (11.5-14.0) % Plt Count 194 (150-450) x10^3/uL MPV 10.4 (7.5-11.0) fL Gran % 62.0 (36.0-66.0) % Immature Gran % (Auto) 0.3 (0.00-0.4) % Nucleat RBC Rel Count 0.0 (0.00-0.1) % Eos # (Auto) 0.10 (0-0.5) x10^3/uL Immature Gran # (Auto) 0.03 (0.00-0.03) x10^3u/L Absolute Lymphs (auto) 3.07 (1.0-4.6) x10^3/uL Absolute Monos (auto) 0.54 (0.0-1.3) x10^3/uL Absolute Nucleated RBC 0.00 (0.00-0.01) x10^3u/L Lymphocytes % 30.9 (24.0-44.0) % Monocytes % 5.4 (0.0-12.0) % Eosinophils % 1.0 (0.00-5.0) % Basophils % 0.4 (0.0-0.4) % Absolute Granulocytes 6.14 (1.4-6.9) x10^3/uL Basophils # 0.04 (0-0.4) x10^3/uL PT (9.4-12.5) SECONDS INR (0.8-3.0) APTT (25.1-36.5) SECONDS Sodium (137-145) mmol/L Potassium (3.5-5.1) mmol/L Chloride (98-107) mmol/L Carbon Dioxide (22-30) mmol/L Anion Gap (5-15) MEQ/L BUN (9-20) mg/dL Creatinine (0.66-1.25) mg/dL Estimated GFR ML/MIN Glucose (74-106) mg/dL Calcium (8.4-10.2) mg/dL Total Bilirubin (0.2-1.3) mg/dL AST (17-59) U/L ALT (0-50) U/L Alkaline Phosphatase (38-126) U/L Troponin I (0.000-0.034) ng/mL Serum Total Protein (6.3-8.2) g/dL Albumin (3.5-5.0) g/dL - Progress Progress: improved Progress Note: 11/03/23 18:25 Nursing note and vital signs reviewed. No food or housing insecurity noted. All lab results reviewed and shared with patient. Additional history per patient's spouse. Patient with elevated blood pressure which was treated adequately with 0.2 p.o. clonidine. All lab results reviewed without significant abnormality. CT of the head demonstrated right maxillary sinusitis without any acute intracranial changes. Serial neurologic exams within normal limits and no focal weakness observed during entire visit. Patient had no chest pain, focal weakness, or headache while in the ER. Patient discharged in stable condition and advised to continue his his losartan which she started 2 days ago. He was also given clonidine 0.1 mg as needed for systolic blood pressure greater than 160 or diastolic blood pressure greater than 100. Amoxicillin started for his right maxillary sinusitis. Counseled pt/family regarding: lab results, diagnosis, need for follow-up, rad results Medical Desision Making - Independent Historian Additional History obtained from: Spouse - Diagnostic Testing Diagnostic test were ordered, analyzed, and reviewed by me: Yes Radiological Interpretation: Reviewed by me - Risk of complications The pt has a mod risk of morbidity or mortality based on: Need for prescription drug management - Departure Departure Disposition: Home Clinical Impression: Hypertension, Sinusitis Condition: Stable Critical Care Time: No Referrals: ALLIE ROBERT MD [Primary Care Provider] - Follow up/PCP as directed Instructions: High Blood Pressure (DC), Sinusitis, Adult (DC) Additional Instructions: Follow-up with your family MD next week. Start amoxicillin twice a day for 10 days. Clonidine as needed for blood pressure-systolic blood pressure( top number) greater than 160 or diastolic blood pressure( bottom number) greater than 100 Return to ER for severe headache, chest pain, focal weakness, or shortness of breath. Prescriptions: Amoxicillin 875 mg PO BID 10 Days #20 tablet Clonidine HCl 0.1 mg [Clonidine 0.1 mg Tablet] 0.1 mg PO TID PRN PRN #15 tablet PRN Reason: Hypertension Clonidine HCl 0.1 mg [Clonidine 0.1 mg Tablet] 0.1 mg PO TID PRN PRN #15 tablet PRN Reason: Hypertension
[2023-11-03 17:20] LABS: Absolute Neutrophil Ct (ANC) 6.14 x10^3/uL (1.4-6.9); BASOPHIL % 0.4 % (0.0-0.4); Basophil (Absolute #) 0.04 x10^3/uL (0-0.4); Hematocrit 43.5 % (42-50); Hemoglobin 14.4 g/dL (12.5-18.0); IMMATURE GRAN # 0.03 x10^3u/L (0.00-0.03); IMMATURE GRAN % 0.3 % (0.00-0.4); Lymphocyte (Absolute #) 3.07 x10^3/uL (1.0-4.6); Lymphocytes % 30.9 % (24.0-44.0); Mean Cell Volume 92.4 fL (78-100); Mean Corpuscular Hemoglobin 30.6 pg (26-32); Mean Corpuscular Hgb Concent. 33.1 g/dL (32-36); Mean Platelet Volume 10.4 fL (7.5-11.0); Monocyte (Absolute #) 0.54 x10^3/uL (0.0-1.3); Monocytes % 5.4 % (0.0-12.0); Platelet Count 194 x10^3/uL (150-450); Red Blood Count 4.71 x10^6/uL (4.1-5.6); Red Cell Distribution Width 12.3 % (11.5-14.0); White Blood Count 9.9 x10^3/uL (4.0-10.5)
[2023-11-03 17:37] VITALS: O2SAT 98
[2023-11-03 17:39] LABS: ALBUMIN 4.7 g/dL (3.5-5.0); ANION GAP 12.3 MEQ/L (5-15); BILIRUBIN,TOTAL 1.6 mg/dL (0.2-1.3); Calcium 9.8 mg/dL (8.4-10.2); Creatinine 1 0.71 mg/dL (0.66-1.25); EST GLOMERULAR FILTRATION RATE 117.5 ML/MIN; INR 1.02 (0.8-3.0); PROTIME 11.1 SECONDS (9.4-12.5); PTT 26.2 SECONDS (25.1-36.5); Potassium 3.9 mmol/L (3.5-5.1); Total Protein 8.4 g/dL (6.3-8.2)
[2023-11-03 18:12] VITALS: BP 133/83; PULSE 90; RESP 19
--- NOTE | 2023-11-03 22:55 | XRAY ---
Indication: Hypertension. Syncope. Multiple continuous axial images of the head without contrast. Comparison: None Normal appearing brain parenchyma, ventricles, and bony calvarium for patient's age. Moderate right maxillary and minimal mucosal thickening both ethmoid sinuses. Remaining paranasal sinuses and mastoid air cells are clear. Impression: Normal CT head without contrast exam. Incidental paranasal sinus disease.
== END 2023-11-03 18:28 | disposition home or self-care (01) ==
LOC: ED 16:01
DX: I10 Essential (primary) hypertension (principal); J32.0 Chronic maxillary sinusitis; E11.9 Type 2 diabetes mellitus without complications; Z79.85 Long-term (current) use of injectable non-insulin antidiabetic drugs; Z79.899 Other long term (current) drug therapy
CPT/HCPCS: 36415; 70450; 80053; 84484; 85025; 85610; 85730; 93005; 99283; A9270-GY

== ENCOUNTER 2024-01-04 06:28 | Day surgery (SDC) | payer BC ==
--- NOTE | 2024-01-02 10:44 | HP ---
DATE OF SURGERY: 01/04/2024 HISTORY OF PRESENT ILLNESS: The patient is a 43-year-old male who presented with complaints of some right sided abdominal and back pain. He had some diarrhea with diarrhea after eating. He denies heartburn. He had a perforated diverticulitis back in 2021. He had a colonoscopy since then. The patient had an ultrasound showing cholelithiasis and possibly what his family doctor told him was a fatty liver and mass. He is questioning if would like to have maybe liver biopsy to rule out CASTANON. PAST MEDICAL HISTORY: Hypertension, diabetes, anxiety, mass, fatty liver. PAST SURGICAL HISTORY: Colonoscopy. ALLERGIES: NKDA. MEDICATIONS: Ozempic, Xanax, gabapentin, metoprolol, Xyzal, potassium, Lasix, buspirone, losartan, ibuprofen. FAMILY HISTORY: Diabetes, hypertension, heart disease, lung cancer. SOCIAL HISTORY: Negative. REVIEW OF SYSTEMS: CONSTITUTIONAL: Denies fever or chills. CHEST: Denies shortness of breath. CVS: Denies chest pain. ABDOMEN: Reports right sided abdominal pain. PHYSICAL EXAMINATION: GENERAL: No acute distress. CHEST: Nonlabored. No shortness of breath. CVS: Regular rate and rhythm. ABDOMEN: Soft. 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 PLAN: Laparoscopic cholecystectomy and liver biopy with Dr. Eleazar Coronado. As dictated by Em Ayon NP.
[2024-01-04] MEDS ORDERED: Sensorcaine 0.25% 10 ML ONE (06:33)
[2024-01-04] MEDS ORDERED: Lactated Ringers 1,000 ML IV ONE (06:39)
[2024-01-04] MEDS ORDERED: MEFOXIN 2 GM PREMIX** 2 GM/50 ML ML IV ONE (06:40)
[2024-01-04] MEDS: Lactated Ringers 1,000 ML IV SCH (06:47)
[2024-01-04] MEDS: MEFOXIN 2 GM PREMIX** 2 GM/50 ML ML IV SCH (06:48)
[2024-01-04 07:17] VITALS: RESP 18
[2024-01-04] MEDS ORDERED: Reglan 10 MG/2 ML ONE (08:25)
[2024-01-04] MEDS ORDERED: Pepcid 20 MG VIAL IV ONE (08:25)
[2024-01-04] MEDS: Reglan 10 MG/2 ML IV ONE (08:26)
[2024-01-04] MEDS: Pepcid 20 MG VIAL IV ONE (08:27)
[2024-01-04] MEDS ORDERED: Pre-Attached Lta Kit TP ONE (08:28)
[2024-01-04] MEDS ORDERED: TORAdol 30 mg Injection ONE (08:30)
[2024-01-04] MEDS ORDERED: LOPRESSOR INJECTION IV ONE (08:30)
[2024-01-04] MEDS ORDERED: Xylocaine-Mpf 2% 5 Ml Vial ONE (08:30)
[2024-01-04] MEDS ORDERED: ROCURONIUM BROMIDE IV ONE (08:30)
[2024-01-04] MEDS ORDERED: Quelicin Fliptop 200 MG/10 ML ONE (08:30)
[2024-01-04] MEDS ORDERED: DEXMEDETOMIDINE 80 MCG/20ML-NS IV ONE (08:30)
[2024-01-04] MEDS ORDERED: BRIDION 200MG/2ML IV ONE (08:30)
[2024-01-04] MEDS ORDERED: Zofran 4 MG/2 ML VIAL ONE (08:30)
[2024-01-04] MEDS ORDERED: DIPRIVAN 200 MG/20 ML IV ONE (08:31)
[2024-01-04] MEDS ORDERED: Versed 2 MG/2 ML Injection ONE (08:36)
[2024-01-04] MEDS ORDERED: SUBLIMAZE 100 MCG/2 ML ONE ×3 (08:36→10:26)
[2024-01-04] MEDS ORDERED: PHENYLEPHRINE HCL ONE (09:13)
[2024-01-04] MEDS ORDERED: Decadron 4 MG INJ ONE (09:29)
[2024-01-04] MEDS ORDERED: Hydromorphone 1 mg/ml Injection ONE (10:26)
--- NOTE | 2024-01-04 10:35 | OP ---
SURGERY DATE/TIME: 01/04/2024 0849 PREOPERATIVE DIAGNOSIS: Symptomatic gallstones, fatty liver by ultrasound. POSTOPERATIVE DIAGNOSIS: Symptomatic gallstones, fatty liver by ultrasound. PROCEDURES: 1) Laparoscopic cholecystectomy. 2) Liver biopsy. SURGEON: Dr. Eleazar Coronado. ANESTHESIA: General. ESTIMATED BLOOD LOSS: None. DRAINS: None. COMPLICATIONS: None. CONDITION: Stable. INDICATIONS: As above. DESCRIPTION OF PROCEDURE AND FINDINGS: Patient taken to surgery. General anesthetic, routine prep and drape. Veress needle right upper quadrant. Insufflating pressure 14. Four - 5's. Good visualization. Cystic duct defined. Cystic artery defined. Cystic duct dissected. It was elected to take it with a stapler against the gallbladder. The 5 exchanged with 12. It was placed. It was fired. It looked excellent. Cystic artery triply clipped. Gallbladder rolled out of gallbladder fossa. Gallbladder delivered through the 12 port. Field was clean and dry. Ruffling [employer] Automatic liver biopsy of the edge of the gallbladder fossa was taken. The cut biopsies were cauterized with settings of 50. The field was dry. CO2 exsufflated. Port site closed with 0 Vicryl. Skin closed with 4-0 Vicryl and Steri-Strips applied. Sterile dressing applied. The patient tolerated the procedure satisfactorily.
[2024-01-04 12:07] VITALS: BP 116/72; PULSE 90; TEMP 97.3; O2SAT 95
== END 2024-01-04 12:20 | disposition home or self-care (01) ==
LOC: SDC 06:28
PROVIDERS: ATTEND Surgery
DX: K80.20 Calculus of gallbladder without cholecystitis without obstruction (principal); K76.0 Fatty (change of) liver, not elsewhere classified; E11.9 Type 2 diabetes mellitus without complications
CPT/HCPCS: 82947; J0330; J0694; J1100; J1170; J1885; J2250; J2371; J2405; J2704; J3010; L0625